=== PATIENT | female | born 1975 | race Caucasian/White ===

== ENCOUNTER 2016-07-01 15:56 | Emergency (ER) | payer OTHER ==
[2016-07-01 16:12] VITALS: BP 129/91; PULSE 90; O2SAT 97
--- NOTE | 2016-07-01 16:57 | ERPHSYRPT ---
- History of Present Illness Time Seen by Provider: 07/01/16 16:47 Source: patient Exam Limitations: no limitations Patient Subjective Stated Complaint: PT REPORTS BACK PAIN INCREASINGLY WORSE- DENIES INJURY-DENIES LIFTING OR PULLING Triage Nursing Assessment: PT PINK WARM ET [id number] OBVIOUS SIGNS OF INJURY- PT MOVING ALL EXTREMITIES-PT AMBULATORY TO ED Physician History: The patient is a 40-year-old female who complains of back pain for 2 days. She doesn't recall injuring her back recently. She has tried Tylenol and muscle rubs without relief. Her past medical history is significant for hypertension, tachycardia, and COPD. Timing/Duration: day(s) (2) Method of Injury: unknown Quality: aching Back Pain Location: T-spine, paraspinous muscles Severity of Pain-Max: moderate Severity of Pain-Current: moderate Modifying Factors: Improves With: pain medication Associated Symptoms: denies symptoms Previous symptoms: no prior history Allergies/Adverse Reactions: penicillin G Allergy (Intermediate, Verified 07/01/16 16:12) Hives Home Medications: Albuterol Sulfate [Ventolin Hfa] 2 inh PO Q4H PRN PRN 03/05/15 [History] Carvedilol 6.25 mg [Coreg 6.25 MG] 6.25 mg PO BID 03/05/15 [History] Fluticasone/Vilanterol [Breo Ellipta 100-25 Mcg INH] 1 each IH QPM 03/05/15 [ History] Lisinopril/Hydrochlorothiazide [Lisinopril-Hctz 20-12.5 mg Tab] 1 tab PO DAILY 03/05/15 [History] Umeclidinium [place] [Incruse Ellipta] 62.5 mcg IH QAM 03/05/15 [History] Meloxicam 7.5 mg [Mobic 7.5 MG] 7.5 mg PO UD 07/01/16 [History] Montelukast Sodium [Singulair] 10 mg PO DAILY 07/01/16 [History] Hx Tetanus, Diphtheria Vaccination/Date Given: Yes Hx Influenza Vaccination/Date Given: Yes Hx Pneumococcal Vaccination/Date Given: Yes Immunizations Up to Date: Yes - Review of Systems Constitutional: No Fever, No Chills Eyes: No Symptoms Ears, Nose, & Throat: No Symptoms Respiratory: No Cough, No Dyspnea Cardiac: No Chest Pain, No Edema, No Syncope Abdominal/Gastrointestinal: No Abdominal Pain, No Nausea, No Vomiting, No Diarrhea Genitourinary Symptoms: No Dysuria Musculoskeletal: Back Pain Skin: No Rash Neurological: No Dizziness, No Focal Weakness, No Sensory Changes Psychological: No Symptoms Endocrine: No Symptoms Hematologic/Lymphatic: No Symptoms Immunological/Allergic: No Symptoms All Other Systems: Reviewed and Negative - Past Medical History Pertinent Past Medical History: Yes Neurological History: No Pertinent History ENT History: No Pertinent History Cardiac History: Arrhythmia, Hypertension Respiratory History: COPD, Emphysema Endocrine Medical History: No Pertinent History Musculoskeletal History: No Pertinent History GI Medical History: No Pertinent History History: No Pertinent History Psycho-Social History: No Pertinent History Female Reproductive Disorders: No Pertinent History Other Medical History: 3 L O2 AT NIGHT ORDERED D/T COPD; PT. IS A SMOKER, RAPID HEART RATE - Past Surgical History Past Surgical History: No - Social History Smoking Status: Current every day smoker How long have you smoked: YRS Exposure to second hand smoke: Yes Drug Use: marijuana Patient Lives Alone: No - Female History Hx Last Menstrual Period: LAST WEEK - Nursing Vital Signs Temperature: 98.3 F Temperature Source: Oral Pulse Rate: 90 Respiratory Rate: 22 Pain Intensity: 7 - Physical Exam General Appearance: mild distress Eye Exam: PERRL/EOMI, eyes nml inspection Ears, Nose, Throat Exam: normal ENT inspection Neck Exam: normal inspection, non-tender, supple, full range of motion, No meningismus, No midline tenderness Respiratory Exam: normal breath sounds, lungs clear, No respiratory distress Cardiovascular Exam: regular rate/rhythm, normal heart sounds Gastrointestinal Exam: soft, No tenderness, No mass Pelvic Exam: not done Rectal Exam: not done Back Exam: muscle spasm Extremity Exam: normal inspection, normal range of motion, No calf tenderness, No pedal edema Neurologic Exam: alert, oriented x 3, cooperative, 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 There were given a prescription for Flexeril 10 mg every 8 hours as needed. Apply ice to your back for 10-15 minutes at a time as needed. Follow-up as needed. Prescriptions: Cyclobenzaprine HCl [Flexeril] 10 mg PO Q8H PRN PRN #10 tablet PRN Reason: Pain
== END 2016-07-01 17:06 | disposition home or self-care (01) ==
LOC: ED 15:56
DX: M62.830 Muscle spasm of back (principal); I10 Essential (primary) hypertension; Z79.899 Other long term (current) drug therapy
CPT/HCPCS: 99282

== ENCOUNTER 2018-05-14 13:25 | Day surgery (SDC) | payer OTHER ==
[2018-05-14] MEDS ORDERED: Ketamine HCl 50 MG/ML IV ONE (13:26)
[2018-05-14] MEDS ORDERED: Xylocaine 1% Vial 30 ML PF IJ ONE (13:26)
[2018-05-14] MEDS ORDERED: Marcaine 0.5% SDV 10 ML IJ ONE (13:26)
[2018-05-14] MEDS ORDERED: Depo-Medrol 40 MG/ML IM ONE (13:26)
[2018-05-14] MEDS ORDERED: DIPRIVAN 200 MG/20 ML IV ONE (13:26)
[2018-05-14] MEDS ORDERED: Lactated Ringers 1,000 ML IV ONE (14:39)
--- NOTE | 2018-05-14 16:30 | XRAY ---
Indication: Right shoulder injection. Intraoperative fluoroscopy was provided for 5 seconds. Single digital spot image submitted for interpretation demonstrates needle tip projecting superior glenohumeral joint. Small amount of contrast injected for needle tip placement. Correlate with intraoperative findings/report.
--- NOTE | 2018-05-14 16:30 | XRAY ---
Indication: Left shoulder injection. Intraoperative fluoroscopy was provided for 7 seconds. Single digital spot image submitted for interpretation demonstrates needle tip projecting superior glenohumeral joint. Small amount of contrast injected for needle tip placement. Correlate with intraoperative findings/report.
--- NOTE | 2018-05-14 16:33 | XRAY ---
7 seconds fluoroscopy time in surgery for left shoulder injection.
--- NOTE | 2018-05-14 16:33 | XRAY ---
5 seconds fluoroscopy time in surgery for right shoulder injection.
== END 2018-05-14 15:24 | disposition home or self-care (01) ==
LOC: SDC-PAIN 13:25
PROVIDERS: ATTEND Psychiatry & Neurology Pain Medicine
DX: M25.512 Pain in left shoulder (principal); M25.511 Pain in right shoulder; M19.012 Primary osteoarthritis, left shoulder; M19.011 Primary osteoarthritis, right shoulder; J43.9 Emphysema, unspecified; Z79.899 Other long term (current) drug therapy
CPT/HCPCS: 73030; 77002; J1030; J2001; J2704

== ENCOUNTER 2023-07-18 15:32 | Inpatient (IN) | payer MEDICARE ==
[2023-07-18] MEDS ORDERED: DUONEB 0.5-3 MG/3 ml Neb IH ONE (16:10)
[2023-07-18] MEDS: DUONEB 0.5-3 MG/3 ml Neb IH ONE (16:11)
[2023-07-18] MEDS ORDERED: Sterile H2O 10 ml IJ ONE (16:21)
[2023-07-18] MEDS: solu-MEDROL 80 MG, Sterile H2O 10 ml 2 ML IV ONE (16:22)
[2023-07-18] MEDS ORDERED: Sodium Chloride 0.9% 1000 ML 1,000 ML ONE ×2 (16:22→17:07)
[2023-07-18] MEDS ORDERED: solu-MEDROL ONE (16:22)
[2023-07-18] MEDS: Sodium Chloride 0.9% 1000 ML 1,000 ML IV SCH ×2 (16:23→17:09)
[2023-07-18 16:30] LABS: Absolute Neutrophil Ct (ANC) 20.88 x10^3/uL (1.4-6.9); BASOPHIL % 0.2 % (0.0-0.4); Basophil (Absolute #) 0.04 x10^3/uL (0-0.4); Eosinophil % 0.1 % (0.00-5.0); Eosinophil (Absolute #) 0.02 x10^3/uL (0-0.5); Hematocrit 29.3 % (35-47); Hemoglobin 9.2 g/dL (12.0-16.0); IMMATURE GRAN # 0.32 x10^3u/L (0.00-0.03); IMMATURE GRAN % 1.2 % (0.00-0.4); Lymphocyte (Absolute #) 2.51 x10^3/uL (1.0-4.6); Lymphocytes % 9.8 % (24.0-44.0); Mean Cell Volume 77.1 fL (78-100); Mean Corpuscular Hemoglobin 24.2 pg (26-32); Mean Corpuscular Hgb Concent. 31.4 g/dL (32-36); Mean Platelet Volume 8.6 fL (7.5-11.0); Monocyte (Absolute #) 1.92 x10^3/uL (0.0-1.3); Monocytes % 7.5 % (0.0-12.0); Neutrophil % 81.2 % (36.0-66.0); Platelet Count 526 x10^3/uL (150-450); Red Cell Distribution Width 17.4 % (11.5-14.0)
[2023-07-18 16:34] LABS: White Blood Count 25.7 x10^3/uL (4.0-10.5)
[2023-07-18 16:43] LABS: ALBUMIN 2.6 g/dL (3.5-5.0); ANION GAP 8.6 MEQ/L (5-15); BILIRUBIN,TOTAL 0.7 mg/dL (0.2-1.3); Calcium 8.3 mg/dL (8.4-10.2); Creatinine 1 0.46 mg/dL (0.52-1.04); EST GLOMERULAR FILTRATION RATE 119.5 ML/MIN; MAGNESIUM 1.3 mg/dL (1.6-2.3); Total Protein 6.1 g/dL (6.3-8.2)
[2023-07-18 16:48] LABS: Potassium 2.8 mmol/L (3.5-5.1)
--- NOTE | 2023-07-18 16:50 | ERPHSYRPT ---
- History of Present Illness Time Seen by Provider: 07/18/23 15:44 Source: patient, family Exam Limitations: no limitations Patient Subjective Stated Complaint: pt states that doctor reji sent her over for pneumonia Triage Nursing Assessment: pt ambulated into the er; pt is axo; c/o cough; expiratory wheezing present to posterior rt upper lobe; moist hacking cough; pt states SOB; pt was hypoxic on arrival, pt was put on 2L O2 stating at 98%; skin dusky, dry, hot to the touch Physician History: 47 years old female with history of respiratory failure secondary to COPD on 2 L oxygen as needed, hypertension presented in the ER with complains of increasing shortness of breath and cough for the last couple of weeks with progressive worsening for the last 3 days. Patient reports coughing up yellow-green sputum. Getting short of breath with minimal activity. Patient denies generalized aches and pains all over and subjective feeling of fever and chills as well. Patient also has a 15 pound weight loss in the last 3 months unintentionally. Patient is sent in here from primary care office for concern about pneumonia and also lung cancer. Patient has outpatient workup done with a white count of 20 5K and potassium of 2.9. Allergies/Adverse Reactions: penicillin G Allergy (Intermediate, Verified 07/18/23 15:47) Hives Home Medications: Albuterol Sulfate [Albuterol Sulfate Hfa] 2 puff IH Q6HPRN PRN 07/18/23 [History] Carvedilol 12.5 mg [Coreg 12.5 mg] 12.5 mg PO BID 07/18/23 [History] Fluticasone/Umeclidin/Vilanter [Trelegy Ellipta 200-62.5-25] 1 puff IH DAILY 07/18/23 [History] Gabapentin 300 mg PO HS 07/18/23 [History] Losartan Potassium 25 mg PO DAILY 07/18/23 [History] Hx Tetanus, Diphtheria Vaccination/Date Given: No (unsure) Hx Influenza Vaccination/Date Given: Yes Hx Pneumococcal Vaccination/Date Given: Yes Immunizations Up to Date: No Travel Risk - International Travel Have you traveled outside of the country in past 3 weeks: No - Emerging Infectious Disease Are you exhibiting symptoms associated with any current EIDs: Yes Symptoms: Cough: New Onset - Review of Systems Constitutional: Fever, Chills, Fatigue, Weakness Eyes: No Symptoms Ears, Nose, & Throat: No Symptoms Respiratory: Cough, Dyspnea, Dyspnea on Exertion (HOBBS), Wheezing Cardiac: Edema Abdominal/Gastrointestinal: No Symptoms Genitourinary Symptoms: No Symptoms Musculoskeletal: Myalgias Skin: No Symptoms Neurological: No Symptoms Psychological: No Symptoms Endocrine: No Symptoms Hematologic/Lymphatic: No Symptoms Immunological/Allergic: No Symptoms - Past Medical History Pertinent Past Medical History: Yes Neurological History: No Pertinent History ENT History: No Pertinent History Cardiac History: Hypertension Respiratory History: COPD, Emphysema Endocrine Medical History: No Pertinent History Musculoskeletal History: Fibromyalgia GI Medical History: No Pertinent History History: No Pertinent History Psycho-Social History: No Pertinent History Female Reproductive Disorders: No Pertinent History Other Medical History: rapid heart beat, connective tissue disorder. - Past Surgical History Past Surgical History: No - Female History Hx Now: (unkn) - Social History Smoking Status: Former smoker How long have you smoked: YRS Exposure to second hand smoke: Yes Drug Use: marijuana Patient Lives Alone: No - Nursing Vital Signs Nursing Vital Signs: Initial Vital Signs Temperature 99.9 F 07/18/23 15:55 Pulse Rate 89 07/18/23 15:55 Respiratory Rate 14 07/18/23 15:55 Blood Pressure 127/73 07/18/23 15:55 O2 Sat by Pulse Oximetry 87 L 07/18/23 15:55 Pain Scale Pain Intensity 2 - Physical Exam General Appearance: no apparent distress, alert Eye Exam: PERRL/EOMI Ears, Nose, Throat Exam: hearing grossly normal, normal ENT inspection, normal pharynx Neck Exam: normal inspection, non-tender, supple, full range of motion Respiratory Exam: diminished breath sounds, crackles/rales, rhonchi, wheezing Cardiovascular/Chest Exam: normal heart sounds, regular rate/rhythm Abdominal/Gastrointestinal Exam: soft, normal bowel sounds, No tenderness Extremity Exam: non-tender, normal range of motion, swelling (Bilateral 2+ pitting edema in the feet and ankles) Neurologic Exam: alert, oriented x 3, cooperative, 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 treatment specialist II-XII nml as tested Skin Exam: normal color SpO2 Interpretation: hypoxic, O2 applied SpO2: 96 O2 Delivery: Nasal Cannula Ordered Tests: Active Orders 24 hr Category Date Time Status 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 Press Operator STAT Care 07/18/23 16:06 Active EKG-ER Only STAT Care 07/18/23 16:05 Active IV Insertion STAT Care 07/18/23 16:05 Active Telemetry q4h Care 07/18/23 17:05 Active CHEST WITH CONTRAST [CT] Stat Exams 07/18/23 16:05 Completed BLOOD CULTURE Stat Lab 07/18/23 16:23 Received CBC W DIFF Stat Lab 07/18/23 16:10 Completed CMP Stat Lab 07/18/23 16:10 Completed CULTURE,URINE Stat Lab 07/18/23 16:19 Received Lactic Acid Stat Lab 07/18/23 16:05 Completed MAGNESIUM Stat Lab 07/18/23 16:10 Completed NT PRO BNPII Stat Lab 07/18/23 16:17 Completed PROCALCITONIN Stat Lab 07/18/23 16:17 Completed TROPONIN Q4H Lab 07/18/23 16:17 Completed TROPONIN Q4H Lab 07/18/23 20:15 Ordered TROPONIN Q4H Lab 07/19/23 00:15 Ordered UA W/RFX UR CULTURE Stat Lab 07/18/23 16:19 Completed Respiratory Therapy Assessment DAILY RT 07/18/23 16:14 Active Transfer Order Routine Transfer 07/18/23 Ordered Medication Summary Generic Name Dose Route Start Last Admin Trade Name Freq PRN Reason Stop Dose Admin Sodium Chloride 1,000 mls @ 100 mls/hr 07/18/23 16:15 07/18/23 16:23 Sodium Chloride 0.9% 1000 Ml IV 08/17/23 16:14 100 mls/hr .Q10H LJ Administration Potassium Chloride 20 meq in 100 mls @ 50 mls/hr 07/18/23 17:15 07/18/23 17:08 Potassium Chloride 20 Meq In Water 100ml IV 07/18/23 21:14 50 mls/hr Q2H LJ Administration Sodium Chloride 1,000 mls @ 125 mls/hr 07/18/23 17:15 07/18/23 17:09 Sodium Chloride 0.9% 1000 Ml IV 08/17/23 17:14 125 mls/hr .Q8H LJ Administration Azithromycin 500 mg in 250 mls @ 250 mls/hr 07/18/23 17:40 Zithromax 500 Mg/ 250 Ml Nacl Premix IV 07/18/23 18:39 STAT STA Magnesium Sulfate/Dextrose 100 mls @ 100 mls/hr 07/18/23 17:45 07/18/23 18:12 Magnesium 1 Gm / 100 Ml D5w IV 07/18/23 19:44 100 mls/hr Q1H LJ Administration Vancomycin HCl 2 gm in 400 mls @ 133.333 mls/hr 07/18/23 17:59 Vancomycin 2 Gram/400 Ml Bag IV 07/18/23 20:58 STAT ONE Discontinued Medications Generic Name Dose Route Start Last Admin Trade Name Fredebra PRN Reason Stop Dose Admin Albuterol/Ipratropium 3 ml 07/18/23 16:05 07/18/23 16:11 Ipratropium/Albuterol Sulfate 3 Ml Ampul.Neb IH 07/18/23 16:06 3 ml STAT ONE Administration Albuterol/Ipratropium Confirm 07/18/23 16:10 Ipratropium/Albuterol Sulfate 3 Ml Ampul.Neb Administered 07/18/23 16:11 Dose 3 ml IH .STK-MED ONE Methylprednisolone Sodium 0 mg 07/18/23 16:05 07/18/23 16:22 Succinate 80 mg/ Sterile Water IV 07/18/23 16:06 125 mg 2 ml STAT ONE Administration Aztreonam 2 gm/ Sodium 100 mls @ 200 mls/hr 07/18/23 17:41 Chloride IV 07/18/23 18:10 STAT ONE Methylprednisolone Sodium Succinate Confirm 07/18/23 16:22 Methylprednis Sod Succ 125 Mg/2 Ml Vial Administered 07/18/23 16:23 Dose 125 mg .ROUTE .STK-MED ONE Potassium Chloride 40 meq 07/18/23 17:05 07/18/23 17:09 Potassium Chloride Tab 10 Meq Tab PO 07/18/23 17:06 40 meq STAT ONE Administration Potassium Chloride Confirm 07/18/23 17:07 Potassium Chloride Tab 10 Meq Tab Administered 07/18/23 17:08 Dose 40 meq .ROUTE .STK-MED ONE Sterile Water Confirm 07/18/23 16:21 Water For Injection,Sterile 10 Ml Vial Administered 07/18/23 16:22 Dose 10 ml IJ .STK-MED ONE Lab/Rad Data: Laboratory Result Diagrams 07/18/23 16:10 07/18/23 16:10 Laboratory Results 07/18/23 07/18/23 07/18/23 Range/Units 16:19 16:17 16:17 WBC (4.0-10.5) x10^3/uL RBC (4.1-5.4) x10^6/uL Hgb (12.0-16.0) g/dL Hct (35-47) % MCV (78-100) fL MCH (26-32) pg MCHC (32-36) g/dL RDW (11.5-14.0) % Plt Count (150-450) x10^3/uL MPV (7.5-11.0) fL Gran % (36.0-66.0) % Immature Gran % (Auto) (0.00-0.4) % Nucleat RBC Rel Count (0.00-0.1) % Eos # (Auto) (0-0.5) x10^3/uL Immature Gran # (Auto) (0.00-0.03) x10^3u/L Absolute Lymphs (auto) (1.0-4.6) x10^3/uL Absolute Monos (auto) (0.0-1.3) x10^3/uL Absolute Nucleated RBC (0.00-0.01) x10^3u/L Lymphocytes % (24.0-44.0) % Monocytes % (0.0-12.0) % Eosinophils % (0.00-5.0) % Basophils % (0.0-0.4) % Absolute Granulocytes (1.4-6.9) x10^3/uL Basophils # (0-0.4) x10^3/uL Sodium (135-145) mmol/L Potassium (3.5-5.1) mmol/L Chloride (98-107) mmol/L Carbon Dioxide (22-30) mmol/L Anion Gap (5-15) MEQ/L BUN (7-17) mg/dL Creatinine (0.52-1.04) mg/dL Estimated GFR ML/MIN Glucose (74-106) mg/dL Lactic Acid (0.4-2.0) Calcium (8.4-10.2) mg/dL Magnesium (1.6-2.3) mg/dL Total Bilirubin (0.2-1.3) mg/dL AST (14-36) U/L ALT (0-35) U/L Alkaline Phosphatase (38-126) U/L Troponin I (0.000-0.033) ng/mL NT-Pro-B Natriuret Pep 1190 (<300) pg/mL Serum Total Protein (6.3-8.2) g/dL Albumin (3.5-5.0) g/dL Procalcitonin 0.145 H (0.030-0.080) ng/mL Urine Color [place] A (Yellow) Urine Appearance Turbid A (Clear) Urine pH 5.5 (4.6-8.0) Ur Specific [place] 1.020 (1.005-1.030) Urine Protein 30 (Negative) Urine Glucose (UA) Negative (Negative) mg/dL Urine Ketones Negative (Negative) Urine Blood Negative (Negative) Urine Nitrite Positive A (Negative) Urine Bilirubin Moderate A (Negative) Urine Urobilinogen 2.0 A (0.2) mg/dL Ur Leukocyte Esterase Moderate A (Negative) U Hyaline Cast (Auto) None Seen (0-2) /LPF Urine Microscopic RBC 0-2 (0-5) /HPF Urine Microscopic WBC 6-10 A (0-5) /HPF Ur Epithelial Cells Moderate A (None Seen) /HPF Amorphous Crystals Moderate A (None Seen) /HPF Urine Bacteria Moderate A (None Seen) /HPF Urine Culture Reflexed YES (NO) Influenza Type A Ag NEGATIVE (NEGATIVE) Influenza Type B Ag NEGATIVE (NEGATIVE) RSV (PCR) NEGATIVE (NEGATIVE) SARS-CoV-2 (PCR) NEGATIVE (NEGATIVE) Slides for Path Review 07/18/23 07/18/23 07/18/23 Range/Units 16:17 16:10 16:10 WBC 25.7 H* (4.0-10.5) x10^3/uL RBC 3.80 L (4.1-5.4) x10^6/uL Hgb 9.2 L (12.0-16.0) g/dL Hct 29.3 L (35-47) % MCV 77.1 L (78-100) fL MCH 24.2 L (26-32) pg MCHC 31.4 L (32-36) g/dL RDW 17.4 H (11.5-14.0) % Plt Count 526 H (150-450) x10^3/uL MPV 8.6 (7.5-11.0) fL Gran % 81.2 H (36.0-66.0) % Immature Gran % (Auto) 1.2 H (0.00-0.4) % Nucleat RBC Rel Count 0.0 (0.00-0.1) % Eos # (Auto) 0.02 (0-0.5) x10^3/uL Immature Gran # (Auto) 0.32 H (0.00-0.03) x10^3u/L Absolute Lymphs (auto) 2.51 (1.0-4.6) x10^3/uL Absolute Monos (auto) 1.92 H (0.0-1.3) x10^3/uL Absolute Nucleated RBC 0.00 (0.00-0.01) x10^3u/L Lymphocytes % 9.8 L (24.0-44.0) % Monocytes % 7.5 (0.0-12.0) % Eosinophils % 0.1 (0.00-5.0) % Basophils % 0.2 (0.0-0.4) % Absolute Granulocytes 20.88 H (1.4-6.9) x10^3/uL Basophils # 0.04 (0-0.4) x10^3/uL Sodium 131 L (135-145) mmol/L Potassium 2.8 L* (3.5-5.1) mmol/L Chloride 94 L (98-107) mmol/L Carbon Dioxide 30 (22-30) mmol/L Anion Gap 8.6 (5-15) MEQ/L BUN 7 (7-17) mg/dL Creatinine 0.46 L (0.52-1.04) mg/dL Estimated GFR 119.5 ML/MIN Glucose 112 H (74-106) mg/dL Lactic Acid (0.4-2.0) Calcium 8.3 L (8.4-10.2) mg/dL Magnesium 1.3 L (1.6-2.3) mg/dL Total Bilirubin 0.70 (0.2-1.3) mg/dL AST 54 H (14-36) U/L ALT 21 (0-35) U/L Alkaline Phosphatase 112 (38-126) U/L Troponin I < 0.012 (0.000-0.033) ng/mL NT-Pro-B Natriuret Pep (<300) pg/mL Serum Total Protein 6.1 L (6.3-8.2) g/dL Albumin 2.6 L (3.5-5.0) g/dL Procalcitonin (0.030-0.080) ng/mL Urine Color (Yellow) Urine Appearance (Clear) Urine pH (4.6-8.0) Ur Specific [place] (1.005-1.030) Urine Protein (Negative) Urine Glucose (UA) (Negative) mg/dL Urine Ketones (Negative) Urine Blood (Negative) Urine Nitrite (Negative) Urine Bilirubin (Negative) Urine Urobilinogen (0.2) mg/dL Ur Leukocyte Esterase (Negative) U Hyaline Cast (Auto) (0-2) /LPF Urine Microscopic RBC (0-5) /HPF Urine Microscopic WBC (0-5) /HPF Ur Epithelial Cells (None Seen) /HPF Amorphous Crystals (None Seen) /HPF Urine Bacteria (None Seen) /HPF Urine Culture Reflexed (NO) Influenza Type A Ag (NEGATIVE) Influenza Type B Ag (NEGATIVE) RSV (PCR) (NEGATIVE) SARS-CoV-2 (PCR) (NEGATIVE) Slides for Path Review YES 07/18/23 Range/Units 16:05 WBC (4.0-10.5) x10^3/uL RBC (4.1-5.4) x10^6/uL Hgb (12.0-16.0) g/dL Hct (35-47) % MCV (78-100) fL MCH (26-32) pg MCHC (32-36) g/dL RDW (11.5-14.0) % Plt Count (150-450) x10^3/uL MPV (7.5-11.0) fL Gran % (36.0-66.0) % Immature Gran % (Auto) (0.00-0.4) % Nucleat RBC Rel Count (0.00-0.1) % Eos # (Auto) (0-0.5) x10^3/uL Immature Gran # (Auto) (0.00-0.03) x10^3u/L Absolute Lymphs (auto) (1.0-4.6) x10^3/uL Absolute Monos (auto) (0.0-1.3) x10^3/uL Absolute Nucleated RBC (0.00-0.01) x10^3u/L Lymphocytes % (24.0-44.0) % Monocytes % (0.0-12.0) % Eosinophils % (0.00-5.0) % Basophils % (0.0-0.4) % Absolute Granulocytes (1.4-6.9) x10^3/uL Basophils # (0-0.4) x10^3/uL Sodium (135-145) mmol/L Potassium (3.5-5.1) mmol/L Chloride (98-107) mmol/L Carbon Dioxide (22-30) mmol/L Anion Gap (5-15) MEQ/L BUN (7-17) mg/dL Creatinine (0.52-1.04) mg/dL Estimated GFR ML/MIN Glucose (74-106) mg/dL Lactic Acid 1.3 (0.4-2.0) Calcium (8.4-10.2) mg/dL Magnesium (1.6-2.3) mg/dL Total Bilirubin (0.2-1.3) mg/dL AST (14-36) U/L ALT (0-35) U/L Alkaline Phosphatase (38-126) U/L Troponin I (0.000-0.033) ng/mL NT-Pro-B Natriuret Pep (<300) pg/mL Serum Total Protein (6.3-8.2) g/dL Albumin (3.5-5.0) g/dL Procalcitonin (0.030-0.080) ng/mL Urine Color (Yellow) Urine Appearance (Clear) Urine pH (4.6-8.0) Ur Specific [place] (1.005-1.030) Urine Protein (Negative) Urine Glucose (UA) (Negative) mg/dL Urine Ketones (Negative) Urine Blood (Negative) Urine Nitrite (Negative) Urine Bilirubin (Negative) Urine Urobilinogen (0.2) mg/dL Ur Leukocyte Esterase (Negative) U Hyaline Cast (Auto) (0-2) /LPF Urine Microscopic RBC (0-5) /HPF Urine Microscopic WBC (0-5) /HPF Ur Epithelial Cells (None Seen) /HPF Amorphous Crystals (None Seen) /HPF Urine Bacteria (None Seen) /HPF Urine Culture Reflexed (NO) Influenza Type A Ag (NEGATIVE) Influenza Type B Ag (NEGATIVE) RSV (PCR) (NEGATIVE) SARS-CoV-2 (PCR) (NEGATIVE) Slides for Path Review - Progress Progress: re-examined Air Movement: fair Progress Note: 07/18/23 18:10 47 years old is evaluated in the ER for worsening cough and shortness of breath with unintentional recent weight loss. Patient is given DuoNeb and steroids, started on gentle hydration. Patient workup showed EKG sinus rhythm with no acute ST elevations and negative initial troponins. She has a white count of 25, chemistries potassium of 2.8 and magnesium of 1.3, she is getting replacement. She does have UTI as well with positive nitrites. I have obtained CT chest PE protocol which is negative for pulmonary embolism but diffuse emphysema and opacities consistent with pneumonia and also multiple lung masses suggesting possible malignancy. She is started on broad-spectrum antibiotics, aztreonam/vancomycin and Zithromax. I have shared the results of workup with patient including CT finding which according to patient she is aware of the fact that she has lung masses and does not want anyone to touch them. I have told patient that this could be a malignancy and she is states "I want to with them but would not let anyone touch it". I have suggested admission which she agreed. I discussed with Dr. Liu, reviewed history, workup and patient perspective about lung masses and she agreed to keep patient in here. Patient history, workup, review and interpretation of workup, management are one of the highest level of complexity. Blood Culture(s) Obtained: Yes Antibiotics given: Yes Discussed with : Other (Noe hospitalist [id number]) Will see patient in: hospital (full admit) Counseled pt/family regarding: lab results, diagnosis, rad results Medical Desision Making - Independent Historian Additional History obtained from: Spouse - Discussion of managment Care discussed with:: hospitalist (Dr. Liu) Reviewed:: Test results, Need for additional workup Agreed on:: Treatment plan, decision to admit Will see patient: in hospital - Diagnostic Testing Diagnostic test were ordered, analyzed, and reviewed by me: Yes Radiological Interpretation: Reviewed by me - Risk of complications The pt has a high risk of morbidity or mortality based on: Decision regarding hospitilization or escalation of hosp level of care - Departure Departure Disposition: In-patient Admission Clinical Impression: Respiratory failure, Pneumonia, Lung mass, Hypokalemia, Hypomagnesemia, Sepsis, UTI (urinary tract infection) Condition: Fair Critical Care Time: Yes Critical Care Time(excluding separately billable procedures): Critical 30-74 mins Referrals: ADRIANO ZULETA MD [Primary Care Provider] - Follow up/PCP as directed
[2023-07-18] MEDS ORDERED: Klor Con ONE (17:07)
[2023-07-18 17:08] LABS: INFLUENZA A NEGATIVE (NEGATIVE); INFLUENZA B NEGATIVE (NEGATIVE); RESPIRATORY SYNCTIAL VIRUS NEGATIVE (NEGATIVE); SARS-CoV-2 Xpert Express NEGATIVE (NEGATIVE)
[2023-07-18] MEDS ORDERED: POTASSIUM CHLORIDE 20 mEq IN WATER 100ML 100 ML IV ONE ×2 (17:08→19:15)
[2023-07-18] MEDS: POTASSIUM CHLORIDE 20 mEq IN WATER 100ML 20 MEQ/100 ML BAG IV SCH (17:08)
[2023-07-18] MEDS: Klor Con PO ONE (17:09)
[2023-07-18 17:12] LABS: Appearance Turbid (Clear); Bacteria Moderate /HPF (None Seen); Bilirubin Moderate (Negative); Blood Negative (Negative); Epithelial Cells Moderate /HPF (None Seen); Glucose, Urine Negative (Negative); Hyaline Casts None Seen /LPF (0-2); Ketones Negative (Negative); Leukocyte Esterase Moderate (Negative); Nitrite Positive (Negative); Ph 5.5 (4.6-8.0); Protein,Urine Dip 30 (Negative); RBC 0-2 /HPF (0-5)
[2023-07-18 17:13] LABS: ADD URINE CULTURE? YES (NO); Amourphous Crystal Moderate /HPF (None Seen)
[2023-07-18 17:19] LABS: Slide Review 1 YES
--- NOTE | 2023-07-18 17:22 | XRAY ---
Indication: Short of breath. Mass. Pulmonary embolus. Multiple contiguous axial images obtained through the chest using 80 cc Isovue 370 contrast and PE protocol. Comparison: CT chest without contrast July 07, 2019 Good opacification of the pulmonary arteries to include the lobar and segmental branches. No pulmonary embolus. Heart not enlarged. Aorta is normal in course and caliber. New 1.1 x 1.4 cm right hilar node. Lungs again demonstrates advanced diffuse centrilobular pulmonary emphysema. Posterior right upper lobe demonstrates new 4.8 x 6.1 x 6.6 cm subpleural noncalcified mass with irregular/spiculated margins worrisome for malignancy. Adjacent pleural thickening but no chest wall invasion/osseous destructive process. Right lower lobe demonstrates new 3.2 x 4.7 x 3.2 cm spiculated noncalcified mass also probably malignance. Posterior inferior right upper lobe demonstrates new hazy interstitial alveolar opacities probably inflammatory/infectious with tiny right effusion. Previous 4 mm peripheral left lower lobe noncalcified nodule is grossly stable and favored to be benign given stability over the years. Bony thorax intact. No suspicious bony lesions. Limited upper abdomen demonstrates stable 1 cm posterior right hepatic hypodense lesion dating back to June 05, 2018 CT chest exam and probable cyst. Impression: 1. Negative pulmonary embolus. 2. New large right upper and right lower lobe noncalcified lung masses as detailed worrisome for malignancy. 3. New right hilar prominent lymph node probably metastatic. 4. New right upper lobe interstitial alveolar opacities with tiny effusion probably pneumonia. 5. Again chronic findings including pulmonary emphysema, benign left lower lobe noncalcified micronodule, and probable hepatic cyst.
[2023-07-18] MEDS ORDERED: Magnesium 1 Gm / 100 Ml D5W*** 100 ML IV ONE ×2 (17:47→18:11)
[2023-07-18] MEDS: Magnesium 1 Gm / 100 Ml D5W*** 100 ML IV SCH (17:48)
[2023-07-18 18:01] LABS: PROCALCITONIN 0.145 ng/mL (0.030-0.080)
[2023-07-18] MEDS ORDERED: Zithromax 500 MG/ 250 ML NaCl Premix 500 MG/250 ML IVPB IV ONE (18:28)
[2023-07-18] MEDS: Zithromax 500 MG/ 250 ML NaCl Premix 500 MG/250 ML IVPB IV STA (18:29)
[2023-07-18] MEDS: AZACTAM 1 GM*** 2 GM in Sodium Chloride 0.9% 100 ML IV ONE (19:34)
[2023-07-18] MEDS ORDERED: VANCOMYCIN 2 GRAM/400 ML BAG 2 GM/400 ML PIGGYBACK IV ONE (19:59)
[2023-07-18] MEDS: VANCOMYCIN 2 GRAM/400 ML BAG 2 GM/400 ML PIGGYBACK IV ONE (20:00)
--- NOTE | 2023-07-18 22:27 | PCM.HP ---
History of Present Illness - Chief Complaint Chief Complaint: Pnuemonia/UTI Date: 07/18/23 History of Present Illness: Ms. DOUGLAS is a 47 year old female with a past medical history significant for hypertension, mixed connective tissue disease, and COPD who presents to the hospital with complaints of increasing weakness, lower abdominal pain and cough associated with yellow green sputum. She was found to have an elevated WBC count of 25k and recently saw her wood preserving plant laborer who held her Plaquenil. Some low grade temps but no fever/chills. No chest pain but persistent shortness of breath. No nausea or vomiting but significant diarrhea. Initial labs were also notable for a potassium of 2.6 and magnesium of 1.3. She was started on IVFs, received doses of Mg/K and given antibiotics in the ER. She is resting in bed, awake/alert. She was slightly hypotensive but appears better after fluid bolus. CT chest negative for PE, but does show RUL/RLL masses with likely metastatic disease. - Review of Systems Constitutional: Fatigue, Lethargy, No Chills Eyes: No Vision Changes Ears, Nose, & Throat: No Sinus Drainage Respiratory: Cough, Short Of Breath, No Orthopnea Cardiac: No Chest Pain, No Edema, No Palpitations Abdominal/Gastrointestinal: Diarrhea, No Abdominal Pain, No Nausea, No Vomiting Genitourinary Symptoms: No Dysuria, No Frequency, No Hematuria Musculoskeletal: No Arthralgias, No Back Pain Skin: No Cellulitis, No Rash Neurological: No Focal Weakness Psychological: No Suicidal Ideations Endocrine: No Polyuria, No Polydipsia Medications & Allergies Home Medications: Home Medication List Albuterol Sulfate [Albuterol Sulfate Hfa] 2 puff IH Q6HPRN PRN 07/18/23 [History Confirmed 07/18/23] Carvedilol 12.5 mg [Coreg 12.5 mg] 12.5 mg PO BID 07/18/23 [History Confirmed 07/18/23] Fluticasone/Umeclidin/Vilanter [Trelegy Ellipta 200-62.5-25] 1 puff IH DAILY 07/18/23 [History Confirmed 07/18/23] Gabapentin 300 mg PO HS 07/18/23 [History Confirmed 07/18/23] Losartan Potassium 25 mg PO DAILY 07/18/23 [History Confirmed 07/18/23] Allergies/Adverse Reactions: Allergies Allergy/AdvReac Type Severity Reaction Status Date / Time penicillin G Allergy Intermediate Hives Verified 07/18/23 15:47 - Past Medical History Past Medical History: Yes Neurological History: No Pertinent History ENT History: No Pertinent History Cardiac History: Hypertension Respiratory History: COPD, Emphysema Endocrine Medical History: No Pertinent History Musculoskelatal History: Fibromyalgia GI Medical History: No Pertinent History History: No Pertinent History Pyscho-Social History: No Pertinent History Reproductive Disorders: No Pertinent History Comment: rapid heart beat, connective tissue disorder. - Female History Are you now?: No - Past Surgical History Past Surgical History: No - Social History Smoking Status: Current every day smoker How long have you smoked: YRS Exposure to second hand smoke: Yes Alcohol: None Drug Use: marijuana - Social Determinants of Health Will the patient participate in the screening: Yes Do you worry about a steady place to live?: No Do you have any problems with any of the following?: No known problems In the past 12 months,have you had to go without utilities?: No Have you or anyone in your house had to go without enough: No Transportation Issues: No Has anyone in your support network made you feel unsafe?: No Does the patient want assistance with any of the above?: No - Physical Exam Vital Signs: Vital Signs - 24 hr Temp Pulse Resp BP BP Pulse Ox 07/18/23 21:03 98.2 F 85 16 112/59 98 07/18/23 19:30 83 23 92/60 95 07/18/23 19:00 87 21 100/67 94 L 07/18/23 18:45 87 20 111/68 94 L 07/18/23 18:30 85 18 101/65 95 07/18/23 18:15 84 26 H 106/67 95 07/18/23 18:14 96 07/18/23 18:00 83 21 105/66 94 L 07/18/23 17:45 83 17 109/62 93 L 07/18/23 17:30 83 16 103/64 07/18/23 17:17 84 13 105/73 94 L 07/18/23 16:30 88 113/60 07/18/23 16:15 87 22 123/65 07/18/23 16:14 89 14 96 07/18/23 15:55 99.9 F 89 14 127/73 87 L General Appearance: no apparent distress Neurologic Exam: alert, oriented x 3 Ears, Nose, Throat Exam: dry mucous membranes Neck Exam: supple Respiratory Exam: No respiratory distress Cardiovascular Exam: regular rate/rhythm Gastrointestinal/Abdomen Exam: soft Extremity Exam: No pedal edema, No swelling Skin Exam: normal color, dry, No rash Results - Labs Lab/Micro Results: Lab Results-Last 24 Hours 07/18/23 07/18/23 07/18/23 Range/Units 16:05 16:10 16:10 WBC 25.7 H* (4.0-10.5) x10^3/uL RBC 3.80 L (4.1-5.4) x10^6/uL Hgb 9.2 L (12.0-16.0) g/dL Hct 29.3 L (35-47) % MCV 77.1 L (78-100) fL MCH 24.2 L (26-32) pg MCHC 31.4 L (32-36) g/dL RDW 17.4 H (11.5-14.0) % Plt Count 526 H (150-450) x10^3/uL MPV 8.6 (7.5-11.0) fL Gran % 81.2 H (36.0-66.0) % Immature Gran % (Auto) 1.2 H (0.00-0.4) % Nucleat RBC Rel Count 0.0 (0.00-0.1) % Eos # (Auto) 0.02 (0-0.5) x10^3/uL Immature Gran # (Auto) 0.32 H (0.00-0.03) x10^3u/L Absolute Lymphs (auto) 2.51 (1.0-4.6) x10^3/uL Absolute Monos (auto) 1.92 H (0.0-1.3) x10^3/uL Absolute Nucleated RBC 0.00 (0.00-0.01) x10^3u/L Lymphocytes % 9.8 L (24.0-44.0) % Monocytes % 7.5 (0.0-12.0) % Eosinophils % 0.1 (0.00-5.0) % Basophils % 0.2 (0.0-0.4) % Absolute Granulocytes 20.88 H (1.4-6.9) x10^3/uL Basophils # 0.04 (0-0.4) x10^3/uL Sodium 131 L (135-145) mmol/L Potassium 2.8 L* (3.5-5.1) mmol/L Chloride 94 L (98-107) mmol/L Carbon Dioxide 30 (22-30) mmol/L Anion Gap 8.6 (5-15) MEQ/L BUN 7 (7-17) mg/dL Creatinine 0.46 L (0.52-1.04) mg/dL Estimated GFR 119.5 ML/MIN Glucose 112 H (74-106) mg/dL Lactic Acid 1.3 (0.4-2.0) Calcium 8.3 L (8.4-10.2) mg/dL Magnesium 1.3 L (1.6-2.3) mg/dL Total Bilirubin 0.70 (0.2-1.3) mg/dL AST 54 H (14-36) U/L ALT 21 (0-35) U/L Alkaline Phosphatase 112 (38-126) U/L Troponin I (0.000-0.033) ng/mL NT-Pro-B Natriuret Pep (<300) pg/mL Serum Total Protein 6.1 L (6.3-8.2) g/dL Albumin 2.6 L (3.5-5.0) g/dL Procalcitonin (0.030-0.080) ng/mL Urine Color (Yellow) Urine Appearance (Clear) Urine pH (4.6-8.0) Ur Specific [place] (1.005-1.030) Urine Protein (Negative) Urine Glucose (UA) (Negative) mg/dL Urine Ketones (Negative) Urine Blood (Negative) Urine Nitrite (Negative) Urine Bilirubin (Negative) Urine Urobilinogen (0.2) mg/dL Ur Leukocyte Esterase (Negative) U Hyaline Cast (Auto) (0-2) /LPF Urine Microscopic RBC (0-5) /HPF Urine Microscopic WBC (0-5) /HPF Ur Epithelial Cells (None Seen) /HPF Amorphous Crystals (None Seen) /HPF Urine Bacteria (None Seen) /HPF Urine Culture Reflexed (NO) Influenza Type A Ag (NEGATIVE) Influenza Type B Ag (NEGATIVE) RSV (PCR) (NEGATIVE) SARS-CoV-2 (PCR) (NEGATIVE) Slides for Path Review YES 07/18/23 07/18/23 07/18/23 Range/Units 16:17 16:17 16:17 WBC (4.0-10.5) x10^3/uL RBC (4.1-5.4) x10^6/uL Hgb (12.0-16.0) g/dL Hct (35-47) % MCV (78-100) fL MCH (26-32) pg MCHC (32-36) g/dL RDW (11.5-14.0) % Plt Count (150-450) x10^3/uL MPV (7.5-11.0) fL Gran % (36.0-66.0) % Immature Gran % (Auto) (0.00-0.4) % Nucleat RBC Rel Count (0.00-0.1) % Eos # (Auto) (0-0.5) x10^3/uL Immature Gran # (Auto) (0.00-0.03) x10^3u/L Absolute Lymphs (auto) (1.0-4.6) x10^3/uL Absolute Monos (auto) (0.0-1.3) x10^3/uL Absolute Nucleated RBC (0.00-0.01) x10^3u/L Lymphocytes % (24.0-44.0) % Monocytes % (0.0-12.0) % Eosinophils % (0.00-5.0) % Basophils % (0.0-0.4) % Absolute Granulocytes (1.4-6.9) x10^3/uL Basophils # (0-0.4) x10^3/uL Sodium (135-145) mmol/L Potassium (3.5-5.1) mmol/L Chloride (98-107) mmol/L Carbon Dioxide (22-30) mmol/L Anion Gap (5-15) MEQ/L BUN (7-17) mg/dL Creatinine (0.52-1.04) mg/dL Estimated GFR ML/MIN Glucose (74-106) mg/dL Lactic Acid (0.4-2.0) Calcium (8.4-10.2) mg/dL Magnesium (1.6-2.3) mg/dL Total Bilirubin (0.2-1.3) mg/dL AST (14-36) U/L ALT (0-35) U/L Alkaline Phosphatase (38-126) U/L Troponin I < 0.012 (0.000-0.033) ng/mL NT-Pro-B Natriuret Pep 1190 (<300) pg/mL Serum Total Protein (6.3-8.2) g/dL Albumin (3.5-5.0) g/dL Procalcitonin 0.145 H (0.030-0.080) ng/mL Urine Color (Yellow) Urine Appearance (Clear) Urine pH (4.6-8.0) Ur Specific [place] (1.005-1.030) Urine Protein (Negative) Urine Glucose (UA) (Negative) mg/dL Urine Ketones (Negative) Urine Blood (Negative) Urine Nitrite (Negative) Urine Bilirubin (Negative) Urine Urobilinogen (0.2) mg/dL Ur Leukocyte Esterase (Negative) U Hyaline Cast (Auto) (0-2) /LPF Urine Microscopic RBC (0-5) /HPF Urine Microscopic WBC (0-5) /HPF Ur Epithelial Cells (None Seen) /HPF Amorphous Crystals (None Seen) /HPF Urine Bacteria (None Seen) /HPF Urine Culture Reflexed (NO) Influenza Type A Ag NEGATIVE (NEGATIVE) Influenza Type B Ag NEGATIVE (NEGATIVE) RSV (PCR) NEGATIVE (NEGATIVE) SARS-CoV-2 (PCR) NEGATIVE (NEGATIVE) Slides for Path Review 07/18/23 07/18/23 Range/Units 16:19 19:05 WBC (4.0-10.5) x10^3/uL RBC (4.1-5.4) x10^6/uL Hgb (12.0-16.0) g/dL Hct (35-47) % MCV (78-100) fL MCH (26-32) pg MCHC (32-36) g/dL RDW (11.5-14.0) % Plt Count (150-450) x10^3/uL MPV (7.5-11.0) fL Gran % (36.0-66.0) % Immature Gran % (Auto) (0.00-0.4) % Nucleat RBC Rel Count (0.00-0.1) % Eos # (Auto) (0-0.5) x10^3/uL Immature Gran # (Auto) (0.00-0.03) x10^3u/L Absolute Lymphs (auto) (1.0-4.6) x10^3/uL Absolute Monos (auto) (0.0-1.3) x10^3/uL Absolute Nucleated RBC (0.00-0.01) x10^3u/L Lymphocytes % (24.0-44.0) % Monocytes % (0.0-12.0) % Eosinophils % (0.00-5.0) % Basophils % (0.0-0.4) % Absolute Granulocytes (1.4-6.9) x10^3/uL Basophils # (0-0.4) x10^3/uL Sodium (135-145) mmol/L Potassium (3.5-5.1) mmol/L Chloride (98-107) mmol/L Carbon Dioxide (22-30) mmol/L Anion Gap (5-15) MEQ/L BUN (7-17) mg/dL Creatinine (0.52-1.04) mg/dL Estimated GFR ML/MIN Glucose (74-106) mg/dL Lactic Acid (0.4-2.0) Calcium (8.4-10.2) mg/dL Magnesium (1.6-2.3) mg/dL Total Bilirubin (0.2-1.3) mg/dL AST (14-36) U/L ALT (0-35) U/L Alkaline Phosphatase (38-126) U/L Troponin I < 0.012 (0.000-0.033) ng/mL NT-Pro-B Natriuret Pep (<300) pg/mL Serum Total Protein (6.3-8.2) g/dL Albumin (3.5-5.0) g/dL Procalcitonin (0.030-0.080) ng/mL Urine Color [place] A (Yellow) Urine Appearance Turbid A (Clear) Urine pH 5.5 (4.6-8.0) Ur Specific [place] 1.020 (1.005-1.030) Urine Protein 30 (Negative) Urine Glucose (UA) Negative (Negative) mg/dL Urine Ketones Negative (Negative) Urine Blood Negative (Negative) Urine Nitrite Positive A (Negative) Urine Bilirubin Moderate A (Negative) Urine Urobilinogen 2.0 A (0.2) mg/dL Ur Leukocyte Esterase Moderate A (Negative) U Hyaline Cast (Auto) None Seen (0-2) /LPF Urine Microscopic RBC 0-2 (0-5) /HPF Urine Microscopic WBC 6-10 A (0-5) /HPF Ur Epithelial Cells Moderate A (None Seen) /HPF Amorphous Crystals Moderate A (None Seen) /HPF Urine Bacteria Moderate A (None Seen) /HPF Urine Culture Reflexed YES (NO) Influenza Type A Ag (NEGATIVE) Influenza Type B Ag (NEGATIVE) RSV (PCR) (NEGATIVE) SARS-CoV-2 (PCR) (NEGATIVE) Slides for Path Review - Radiology Impressions Radiology Exams & Impressions: Radiology Procedures Category Date Time Status CHEST WITH CONTRAST [CT] Stat Exams 07/18/23 16:05 Completed - Other Procedures and Tests Respiratory Therapy 07/18/23 16:14 Respiratory Therapy Assessment DAILY 07/18/23 20:36 Oxygen Nasal Cannula 2 lpm 07/18/23 21:36 Smoking Cessation Education ONCE Assessment/Plan (1) Pneumonia Current Visit: Yes Status: Acute Qualifiers: Laterality: right Assessment & Plan: R lung pneumonia with associated leukocytosis 1. Admit to hospital 2. IV antibiotics 3. Sputum culture 4. Duonebs/supplemental O2 5. Monitor O2 sats Code(s): J18.9 - PNEUMONIA, UNSPECIFIED ORGANISM (2) Mixed connective tissue disease Current Visit: Yes Status: Acute Assessment & Plan: Followed by rheumatology, had been on Plaquenil but held yesterday 1. Continue to hold Plaquenil 2. Defer steroids for now Code(s): M35.1 - OTHER OVERLAP SYNDROMES (3) Hypokalemia Current Visit: Yes Status: Acute Assessment & Plan: Likely from GI losses related to persistent diarrhea 1. IVFs with KCl 2. Encourage high K diet 3. Monitor electrolytes closely Code(s): E87.6 - HYPOKALEMIA (4) Hypomagnesemia Current Visit: Yes Status: Acute Assessment & Plan: Likely from GI losses and contributing to hypokalemia 1. Replete Mg 2. Monitor Mg level 3. Treat underlying diarrhea Code(s): E83.42 - HYPOMAGNESEMIA (5) Lung mass Current Visit: Yes Status: Acute Assessment & Plan: Likely malignancy 1. Will need oncology work up as outpatient 2. Defer PET scan for now Code(s): R91.8 - OTHER NONSPECIFIC ABNORMAL FINDING OF LUNG FIELD (6) UTI (urinary tract infection) Current Visit: Yes Status: Acute Assessment & Plan: U/A c/w UTI with positive nitrites/leukocytes and associated lower abdominal pain 1. IVFs 2. Antibiotics 3. Follow up urine culture Code(s): N39.0 - URINARY TRACT INFECTION, SITE NOT SPECIFIED (7) Hypertension Current Visit: No Status: Acute Assessment & Plan: Controlled, somewhat hypotensive related to infection 1. Hold bp meds 2. Low Na diet 3. Monitor blood pressure readings Code(s): I10 - ESSENTIAL (PRIMARY) HYPERTENSION Telemedicine Encounter - Telemedicine Encounter Telemedicine Encounter: The entirety of this encounter was performed via Telemedicine"
[2023-07-18] MEDS ORDERED: NEURONTIN ONE (23:20)
[2023-07-18] MEDS: COREG 12.5 MG PO SCH (23:21)
[2023-07-18] MEDS: NEURONTIN PO SCH (23:21)
[2023-07-18] MEDS: SODIUM CHLORIDE 0.9% W/ 40 mEq KCL 1000ML 1,000 ML IV SCH (23:23)
[2023-07-19] MEDS ORDERED: DUONEB 0.5-3 MG/3 ml Neb IH SCH (01:00)
[2023-07-19 04:42] LABS: Absolute Neutrophil Ct (ANC) 26.02 x10^3/uL (1.4-6.9); BASOPHIL % 0.1 % (0.0-0.4); Basophil (Absolute #) 0.04 x10^3/uL (0-0.4); Eosinophil (Absolute #) 0 x10^3/uL (0-0.5); Hematocrit 28.3 % (35-47); Hemoglobin 8.7 g/dL (12.0-16.0); IMMATURE GRAN # 0.46 x10^3u/L (0.00-0.03); IMMATURE GRAN % 1.6 % (0.00-0.4); Lymphocytes % 3.5 % (24.0-44.0); Mean Cell Volume 78.2 fL (78-100); Mean Corpuscular Hgb Concent. 30.7 g/dL (32-36); Mean Platelet Volume 8.5 fL (7.5-11.0); Monocyte (Absolute #) 0.78 x10^3/uL (0.0-1.3); Monocytes % 2.8 % (0.0-12.0); Platelet Count 527 x10^3/uL (150-450); Red Blood Count 3.62 x10^6/uL (4.1-5.4); Red Cell Distribution Width 17.8 % (11.5-14.0)
[2023-07-19 04:48] LABS: White Blood Count 28.3 x10^3/uL (4.0-10.5)
[2023-07-19 05:03] LABS: ALBUMIN 2.3 g/dL (3.5-5.0); ANION GAP 8.9 MEQ/L (5-15); BILIRUBIN,TOTAL 0.4 mg/dL (0.2-1.3); Calcium 8.2 mg/dL (8.4-10.2); Creatinine 1 0.35 mg/dL (0.52-1.04); EST GLOMERULAR FILTRATION RATE 127.6 ML/MIN; Potassium 3.4 mmol/L (3.5-5.1); Total Protein 5.7 g/dL (6.3-8.2)
[2023-07-19 07:18] LABS: Slide Review 1 YES
[2023-07-19] MEDS: Klor Con PO SCH (08:46)
[2023-07-19] MEDS: ENOXAPARIN SODIUM SQ SCH (08:49)
[2023-07-19] MEDS: Cozaar 50 MG PO SCH (08:49)
[2023-07-19] MEDS: LEVOFLOXACIN 750MG/150ML D5W 750 MG/150 ML BAG IV SCH (08:55)
[2023-07-19] MEDS ORDERED: NON-FORMULARY ITEM (Losartan Potassium [Losartan Potassium] 25 MG Tablet) PO SCH (10:00)
[2023-07-19] MEDS ORDERED: Levofloxacin 500MG/100ML D5W 500 MG/100 ML BAG IV SCH (10:00)
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
[2023-07-19] MEDS: Sodium Chloride 0.9% 1000 ML 1,000 ML IV SCH (12:18)
--- NOTE | 2023-07-19 15:03 | XRAY ---
Indication: Bilateral leg edema. Two-dimensional sonogram and color Doppler imaging major venous vessels left and right leg performed. Comparison: None No thrombus seen in the examined deep venous vessels left and right leg including greater saphenous vein. Veins demonstrate normal compressibility. Venous waveforms are normal with and without augmentation. Impression: Left and right legs negative for DVT.
[2023-07-19] MEDS: DUONEB 0.5-3 MG/3 ml Neb IH PRN (20:30)
[2023-07-19] MEDS: Zithromax 500 MG/ 250 ML NaCl Premix 500 MG/250 ML IVPB IV SCH (21:26)
[2023-07-20 07:00] LABS: Hematocrit 29.1 % (35-47); Hemoglobin 8.9 g/dL (12.0-16.0); Mean Cell Volume 79.9 fL (78-100); Mean Corpuscular Hemoglobin 24.5 pg (26-32); Mean Corpuscular Hgb Concent. 30.6 g/dL (32-36); Mean Platelet Volume 8.2 fL (7.5-11.0); Platelet Count 572 x10^3/uL (150-450); Red Blood Count 3.64 x10^6/uL (4.1-5.4); Red Cell Distribution Width 18.1 % (11.5-14.0)
[2023-07-20 07:02] LABS: ALBUMIN 2.5 g/dL (3.5-5.0); ANION GAP 9.8 MEQ/L (5-15); BILIRUBIN,TOTAL 0.3 mg/dL (0.2-1.3); Calcium 8.7 mg/dL (8.4-10.2); Creatinine 1 0.36 mg/dL (0.52-1.04); EST GLOMERULAR FILTRATION RATE 126.7 ML/MIN; Potassium 4.4 mmol/L (3.5-5.1); Total Protein 5.8 g/dL (6.3-8.2)
[2023-07-20 07:11] LABS: White Blood Count 29.4 x10^3/uL (4.0-10.5)
[2023-07-20 08:36] LABS: BAND 4 % (0.0-2.0); Lymphocytes 8 % (24-44); Monocyte 2 % (0.0-12.0); Neutrophils 86 % (36.0-66.0); Total Cells Counted 100
[2023-07-20 08:39] LABS: ANISOCYTOSIS 1+; Platelet Estimate INCREASED (NORMAL); Poikilocytosis 1+
--- NOTE | 2023-07-20 09:01 | PCM.NOTE ---
Date and Time: 07/20/23 0845 Subjective Assessment: Subjective Assessment: Ms. DOUGLAS is a 47 year old female with a past medical history significant for hypertension, mixed connective tissue disease, and COPD who presents to the hospital with complaints of increasing weakness, lower abdominal pain and cough associated with yellow green sputum. She was found to have an elevated WBC count of 25k and recently saw her motel maid who held her Plaquenil. Some low grade temps but no fever/chills. No chest pain but persistent shortness of breath. No nausea or vomiting but significant diarrhea. Initial labs were also notable for a potassium of 2.6 and magnesium of 1.3. She was started on IVFs, received doses of Mg/K and given antibiotics in the ER. She is resting in bed, awake/alert. She was slightly hypotensive but appears better after fluid bolus. CT chest negative for PE, but does show RUL/RLL masses with likely metastatic disease. 07/19/23: Met with patient bedside. Endorses that she is feeling much better today. Reports that she has recently lost 15 lbs in three months and has frequent night sweats. Discussed CT chest finding showing new RUL/RLL masses which are likely malignant. Patient states she was aware of a nodule that has been under surveillance by Dr. Correia her billboard poster helper, but did not know about the other masses. She is very reluctant to get any further testing done, regardless of education she feels that the biopsy will make any malignancy present worse. We discussed a referral to oncology for evaluation. She would like to speak with her prior to making any decisions. Denies fever, cp, abdominal pain, BERNAL, dizziness, N/V/D. Patient does have pedal edema, will obtain US of BLE as she is at risk for DVT with ?malignancy. 07/20/23: No overnight events noted. Discussed recent imaging noting possible malignancy again this morning. Patient is agreeable to see oncology as OP for evaluation. At this time she does not want any further imaging, she would like to wait to discuss with oncology. US negative for DVT of BLE. Patient states dyspnea and cough have improved. Denies fever,cough, cp, abdominal pain, BERNAL, dizziness, N/V/D. - Review of Systems Constitutional: No Symptoms Eyes: No Symptoms Ears, Nose, & Throat: No Symptoms Respiratory: Cough, Short Of Breath Cardiac: No Symptoms Abdominal/Gastrointestinal: No Symptoms Genitourinary Symptoms: No Symptoms Musculoskeletal: No Symptoms Skin: No Symptoms Neurological: No Symptoms Psychological: No Symptoms Endocrine: No Symptoms Hematologic/Lymphatic: No Symptoms Immunological/Allergic: No Symptoms Objective Exam General Appearance: no apparent distress, cachetic Neurologic Exam: alert, oriented x 3, cooperative Skin Exam: pale Eye Exam: PERRL Neck Exam: normal inspection Respiratory Exam: diminished breath sounds Cardiovascular Exam: regular rate/rhythm, normal heart sounds Gastrointestinal/Abdomen Exam: soft, normal bowel sounds Extremity Exam: pedal edema (BLE) Back Exam: normal inspection Pelvic Exam: deferred Rectal Exam: deferred Objective Data Vital Signs: Vital Signs - 24 hr Temp Pulse Resp BP Pulse Ox 07/20/23 08:00 97.7 F 90 16 115/65 94 L 07/20/23 04:00 97.4 F 91 H 20 118/68 92 L 07/19/23 23:44 97.5 F 83 18 96/61 96 07/19/23 20:30 93 H 18 94 L 07/19/23 19:26 97.1 F 91 H 20 101/57 96 07/19/23 18:32 90 18 93 L 07/19/23 16:00 96.9 F 86 22 112/66 90 L 07/19/23 11:25 96.4 F 78 18 111/67 99 Pain Assessment - Last Documented Pain Intensity 0 Intake and Output: Intake & Output 07/17/23 07/18/23 07/19/23 07/20/23 11:59 11:59 11:59 11:59 Intake Total 680 3560 Balance 680 3560 Weight 50.3 kg Lab Results: Lab Results-Last 24 Hours 07/20/23 07/20/23 Range/Units 06:50 06:50 WBC 29.4 H* (4.0-10.5) x10^3/uL RBC 3.64 L (4.1-5.4) x10^6/uL Hgb 8.9 L (12.0-16.0) g/dL Hct 29.1 L (35-47) % MCV 79.9 (78-100) fL MCH 24.5 L (26-32) pg MCHC 30.6 L (32-36) g/dL RDW 18.1 H (11.5-14.0) % Plt Count 572 H (150-450) x10^3/uL MPV 8.2 (7.5-11.0) fL Segmented Neutrophils 86 H (36.0-66.0) % Band Neutrophils 4 H (0.0-2.0) % Lymphocytes (Manual) 8 L (24-44) % Monocytes (Manual) 2 (0.0-12.0) % Platelet Estimate INCREASED (NORMAL) RBC Morphology ABNORMAL Poikilocytosis 1+ Anisocytosis 1+ Sodium 139 (135-145) mmol/L Potassium 4.4 D (3.5-5.1) mmol/L Chloride 110 H (98-107) mmol/L Carbon Dioxide 25 (22-30) mmol/L Anion Gap 9.8 (5-15) MEQ/L BUN 9 (7-17) mg/dL Creatinine 0.36 L (0.52-1.04) mg/dL Estimated GFR 126.7 ML/MIN Glucose 118 H (74-106) mg/dL Calcium 8.7 (8.4-10.2) mg/dL Total Bilirubin 0.30 (0.2-1.3) mg/dL AST 57 H (14-36) U/L ALT 26 (0-35) U/L Alkaline Phosphatase 96 (38-126) U/L Serum Total Protein 5.8 L (6.3-8.2) g/dL Albumin 2.5 L (3.5-5.0) g/dL Radiology Exams: Radiology Procedures Category Date Time Status CHEST WITH CONTRAST [CT] Stat Exams 07/18/23 16:05 Completed VENOUS BILATERAL EXTREMITY [US] Stat Exams 07/19/23 14:16 Completed Multi-Disciplinary Progress Notes: Multi-Disciplinary Progress Notes 07/19/23 12:23 Case Management Note by Elham La PATIENT S/[facility] ABOUT PT/OT. PATIENT REPORTED SHE HAD BEEN GETTING OT AT [facility]. S/W [facility]- SHE HAS NOT HAD THERAPY SINCE 12/24. PATIENT WOULD TO GO BACK TO [facility] FOR PT/OT. OTPT ORDERS FAXED TO THEM AT THIS TIME. THEY WILL CONTACT PATIENT TO SET UP AN APPOINTMENT Initialized on 07/19/23 12:23 - END OF NOTE 07/19/23 10:53 Case Management Note by Elham La PATIENT REPORTS SHE HAS A CONCENTRATOR AT HOME FRO OXYGEN AT HS AT 3L. SHE REPORTS SHE WAS SET UP WITH [employer] BUT SINCE THEY CLOSED SHE NEVER HEARD FROM ANY OTHER COMPANY TO KNOW HOW TOOK OVER HER SERVICE. SHE REPORTS PRIOR TO HER ADMISSION HER CONCENTRATOR WAS MALFUNCTIONING AND ALARMING AT HOME . S/W [facility]- THEY REPORT THEY DO HAVE AN ACCOUNT FOR HER BUT THEY HAVE NOT BILLED FOR ANY EQUIPMENT. PATIENT INITIAL O2 SET UP WAS IN 2017. THEY REPORT PATENT'S CONCENTRATOR CAN NOT BE SERVICED D/T NO ACTIVE ORDER. SHE WILL NEED TO BE A NEW SET UP. BECAUSE HER INITAL SET UP WAS IN 2017 PATIENT CAN GO WITH ANY COMPANY SHE PREFERS. NOTIFIED PATIENT. SHE WOULD LIKE TO USE [facility]. PROVIDER DME PREFERENCE FORM SIGNED. [employer] ORDER FORM PLACED ON CHART FOR THE WEEKEND. NOTIFIED RANDY FRIAS- NEW ORDER FOR OVERNIGHT PULSE ENTERED FOR THIS EVENING AND RESPIRATORY NOTIFIED Initialized on 07/19/23 10:53 - END OF NOTE Assessment/Plan (1) Pneumonia Current Visit: Yes Status: Acute Qualifiers: Laterality: right Assessment & Plan: (1) Pneumonia Current Visit: Yes Status: Acute Qualifiers: Laterality: right Assessment & Plan: -Supplemental oxygen with spo2 goal >92%/DuoNebs -WBC is trending up although malignancy may be contributing -Afebrile -Continue levaquin/azithromycin -Baseline oxygen is 3L at night 07/20/23: -WBC continues to trend up - may be secondary to malignancy -Bcult NGTD -sputum cult/MRSA -nares pending -LA wnl -Continue levaquin - dc azithromycin Code(s): J18.9 - PNEUMONIA, UNSPECIFIED ORGANISM (2) Hypokalemia Current Visit: Yes Status: Acute Assessment & Plan: Likely from GI losses and contributing to hypokalemia -Labs reviewed at 3.4 this morning,will replenish -tele -continue to monitor renal /lytes 07/19: -resolved Code(s): E87.6 - HYPOKALEMIA (3) Hypomagnesemia Current Visit: Yes Status: Acute Assessment & Plan: -Mag level reviewed and WNL, continue to monitor daily Code(s): E83.42 - HYPOMAGNESEMIA (4) Lung mass Current Visit: Yes Status: Acute Assessment & Plan: -CT scan reviewed showing New large right upper and right lower lobe nonc alcified lung masses as detailed worrisome for malignancy. 3. New right hilar prominent lymph node probably metastatic. 4. New right upper lobe interstitial alveolar opacities with tiny effusion probably pneumonia. -Long discussion had with patient regarding results. She is very reluctant to have any further testing such a scans, biopsy, etc. She may consider a referral to oncology for evaluation, she will discuss with her and inform us of her decision. 07/20/23: -will refer to oncology on discharge for evaluation, patient would like to discuss with oncology before any further testing including scans are performed Code(s): R91.8 - OTHER NONSPECIFIC ABNORMAL FINDING OF LUNG FIELD (5) Mixed connective tissue disease Current Visit: Yes Status: Acute Assessment & Plan: -Follow OP with rheumatology, was on plaquenil which is being held for now due to adverse reaction. Code(s): M35.1 - OTHER OVERLAP SYNDROMES (6) Respiratory failure Current Visit: Yes Status: Acute Assessment & Plan: -H/O emphysema, sees Bren, baseline 3L oxygen at night - RT to evaluate oxygen needs, may need continuous oxygen -see pneumonia Code(s): J96.90 - RESPIRATORY FAILURE, UNSP, UNSP W HYPOXIA OR HYPERCAPNIA (7) UTI (urinary tract infection) Current Visit: Yes Status: Acute Assessment & Plan: -UA suspicious for UTI, on levaquin, will follow culture, is asymptomatic 07/20/23: -Culture negative Code(s): N39.0 - URINARY TRACT INFECTION, SITE NOT SPECIFIED (8) Hypertension Current Visit: No Status: Acute Assessment & Plan: -Hypotensive during hospital course, will hold BP meds for now and continue to monitor Code(s): I10 - ESSENTIAL (PRIMARY) HYPERTENSION Code(s): J18.9 - PNEUMONIA, UNSPECIFIED ORGANISM (2) Hypokalemia Current Visit: Yes Status: Acute Code(s): E87.6 - HYPOKALEMIA (3) Hypomagnesemia Current Visit: Yes Status: Acute Code(s): E83.42 - HYPOMAGNESEMIA (4) Lung mass Current Visit: Yes Status: Acute Code(s): R91.8 - OTHER NONSPECIFIC ABNORMAL FINDING OF LUNG FIELD (5) Mixed connective tissue disease Current Visit: Yes Status: Acute Code(s): M35.1 - OTHER OVERLAP SYNDROMES (6) Respiratory failure Current Visit: Yes Status: Acute Code(s): J96.90 - RESPIRATORY FAILURE, UNSP, UNSP W HYPOXIA OR HYPERCAPNIA (7) UTI (urinary tract infection) Current Visit: Yes Status: Acute Code(s): N39.0 - URINARY TRACT INFECTION, SITE NOT SPECIFIED (8) Hypertension Current Visit: No Status: Acute Code(s): I10 - ESSENTIAL (PRIMARY) HYPERTENSION
[2023-07-21 05:41] LABS: Absolute Neutrophil Ct (ANC) 16.35 x10^3/uL (1.4-6.9); BASOPHIL % 0.1 % (0.0-0.4); Basophil (Absolute #) 0.03 x10^3/uL (0-0.4); Eosinophil (Absolute #) 0.01 x10^3/uL (0-0.5); Hematocrit 28.3 % (35-47); Hemoglobin 8.6 g/dL (12.0-16.0); IMMATURE GRAN # 0.28 x10^3u/L (0.00-0.03); IMMATURE GRAN % 1.4 % (0.00-0.4); Lymphocyte (Absolute #) 2.16 x10^3/uL (1.0-4.6); Lymphocytes % 10.6 % (24.0-44.0); Mean Cell Volume 79.3 fL (78-100); Mean Corpuscular Hemoglobin 24.1 pg (26-32); Mean Corpuscular Hgb Concent. 30.4 g/dL (32-36); Mean Platelet Volume 8.2 fL (7.5-11.0); Monocyte (Absolute #) 1.54 x10^3/uL (0.0-1.3); Monocytes % 7.6 % (0.0-12.0); Neutrophil % 80.3 % (36.0-66.0); Platelet Count 525 x10^3/uL (150-450); Red Blood Count 3.57 x10^6/uL (4.1-5.4); Red Cell Distribution Width 18.3 % (11.5-14.0); White Blood Count 20.4 x10^3/uL (4.0-10.5)
[2023-07-21 06:00] LABS: ALBUMIN 2.3 g/dL (3.5-5.0); ANION GAP 7.6 MEQ/L (5-15); BILIRUBIN,TOTAL 0.5 mg/dL (0.2-1.3); Calcium 8.3 mg/dL (8.4-10.2); Creatinine 1 0.42 mg/dL (0.52-1.04); EST GLOMERULAR FILTRATION RATE 122.1 ML/MIN; MAGNESIUM 1.4 mg/dL (1.6-2.3); Potassium 3.8 mmol/L (3.5-5.1); Total Protein 5.4 g/dL (6.3-8.2)
[2023-07-21 06:23] LABS: Slide Review 1 YES
[2023-07-21 09:20] LABS: Iron 22 ug/dL (37-170); Iron Saturation 14 % (20-39); TIBC 159 ug/dL (265-462)
--- NOTE | 2023-07-21 09:58 | PCM.NOTE ---
Date and Time: 07/21/23 0662 Subjective Assessment: Ms. DOUGLAS is a 47 year old female with a past medical history significant for hypertension, mixed connective tissue disease, and COPD. She presented to the hospital on 07/17 with complaints of increasing weakness, lower abdominal pain, and cough associated with yellow green sputum. She was found to have an elevated WBC count of 25k on admission. She she recently saw her food equipment service technician (Dr. Sutton) who held her Plaquenil. She has had some low grade temps but no fever/chills. No chest pain but persistent shortness of breath. No nausea or vomiting but significant diarrhea. Initial labs were also notable for a potassium of 2.6 and magnesium of 1.3. She was started on IVFs, received doses of Mg/K and given antibiotics in the ER. CT chest negative for PE, but does show RUL/RLL masses with likely metastatic disease. Reports that she has recently lost 15 lbs in three months and has frequent night sweats. Discussed CT chest finding showing new RUL/RLL masses which are likely malignant. Patient states she was aware of a nodule that has been under surveillance by Dr. Correia her manufacturing associate, but did not know about the other masses. Patient is agreeable to see oncology as OP for evaluation. At this time she does not want any further imaging, she would like to wait to discuss with oncology. She reports smoking up to 2 ppd since teens. She has not smoked now for 3 weeks and no longer wants to. WBC improved today. She is 92%- Room air. She is no longer SOB but has continued weakness. Will have PT work with pt tomorrow to eval for any home needs. She is declining home care and explains her helps her with everything. - Review of Systems Constitutional: Weakness, No Fever, No Chills Eyes: No Symptoms Ears, Nose, & Throat: No Symptoms Respiratory: No Cough, No Short Of Breath Cardiac: No Chest Pain, No Edema, No Syncope Abdominal/Gastrointestinal: No Abdominal Pain, No Nausea, No Vomiting, No Diarrhea Genitourinary Symptoms: No Dysuria Musculoskeletal: No Back Pain, No Neck Pain Skin: No Rash Neurological: No Dizziness, No Focal Weakness, No Sensory Changes Psychological: No Symptoms Endocrine: No Symptoms Hematologic/Lymphatic: No Symptoms Immunological/Allergic: No Symptoms Objective Exam General Appearance: no apparent distress, thin Neurologic Exam: alert, oriented x 3, cooperative, normal mood/affect, nml cerebellar function, sensation nml, motor weakness, No motor deficits Skin Exam: warm, dry, pale Eye Exam: PERRL, EOMI, eyes nml inspection Ears, Nose, Throat Exam: normal ENT inspection, pharynx normal, moist mucous membranes Neck Exam: normal inspection, non-tender, supple, full range of motion Respiratory Exam: normal breath sounds, lungs clear, No respiratory distress Cardiovascular Exam: regular rate/rhythm, normal heart sounds Gastrointestinal/Abdomen Exam: soft, No tenderness, No mass Extremity Exam: normal inspection, normal range of motion Back Exam: normal inspection, normal range of motion, No CVA tenderness, No vertebral tenderness Pelvic Exam: deferred Rectal Exam: deferred Objective Data Vital Signs: Vital Signs - 24 hr Temp Pulse Resp BP Pulse Ox 07/21/23 08:39 92 H 16 92 L 07/21/23 07:40 98.5 F 106 H 19 120/70 96 07/21/23 04:23 107 H 16 90 L 07/21/23 04:00 98.3 F 106 H 18 120/58 94 L 07/20/23 23:27 98.4 F 101 H 18 90/53 97 07/20/23 20:00 98.5 F 101 H 23 107/59 94 L 07/20/23 18:52 103 H 16 93 L 07/20/23 16:21 97 H 18 93 L 07/20/23 16:00 98 F 102 H 17 100/65 98 07/20/23 12:00 97.7 F 87 16 121/64 98 Pain Assessment - Last Documented Pain Intensity 0 Intake and Output: Intake & Output 07/18/23 07/19/23 07/20/23 07/21/23 11:59 11:59 11:59 11:59 Intake Total 680 3680 3515 Balance 680 3680 3515 Weight 50.3 kg Lab Results: Lab Results-Last 24 Hours 07/20/23 07/20/23 07/21/23 Range/Units 06:50 09:22 05:20 WBC 29.4 H* 20.4 H (4.0-10.5) x10^3/uL RBC 3.64 L 3.57 L (4.1-5.4) x10^6/uL Hgb 8.9 L 8.6 L (12.0-16.0) g/dL Hct 29.1 L 28.3 L (35-47) % MCV 79.9 79.3 (78-100) fL MCH 24.5 L 24.1 L (26-32) pg MCHC 30.6 L 30.4 L (32-36) g/dL RDW 18.1 H 18.3 H (11.5-14.0) % Plt Count 572 H 525 H (150-450) x10^3/uL MPV 8.2 8.2 (7.5-11.0) fL Gran % 80.3 H (36.0-66.0) % Immature Gran % (Auto) 1.4 H (0.00-0.4) % Nucleat RBC Rel Count 0.0 (0.00-0.1) % Eos # (Auto) 0.01 (0-0.5) x10^3/uL Immature Gran # (Auto) 0.28 H (0.00-0.03) x10^3u/L Absolute Lymphs (auto) 2.16 (1.0-4.6) x10^3/uL Absolute Monos (auto) 1.54 H (0.0-1.3) x10^3/uL Absolute Nucleated RBC 0.00 (0.00-0.01) x10^3u/L Lymphocytes % 10.6 L (24.0-44.0) % Monocytes % 7.6 (0.0-12.0) % Eosinophils % 0.0 (0.00-5.0) % Basophils % 0.1 (0.0-0.4) % Absolute Granulocytes 16.35 H (1.4-6.9) x10^3/uL Segmented Neutrophils 86 H (36.0-66.0) % Band Neutrophils 4 H (0.0-2.0) % Lymphocytes (Manual) 8 L (24-44) % Monocytes (Manual) 2 (0.0-12.0) % Basophils # 0.03 (0-0.4) x10^3/uL Platelet Estimate INCREASED (NORMAL) RBC Morphology ABNORMAL Poikilocytosis 1+ Anisocytosis 1+ Smear Path Review Pending Sodium (135-145) mmol/L Potassium (3.5-5.1) mmol/L Chloride (98-107) mmol/L Carbon Dioxide (22-30) mmol/L Anion Gap (5-15) MEQ/L BUN (7-17) mg/dL Creatinine (0.52-1.04) mg/dL Estimated GFR ML/MIN Glucose (74-106) mg/dL Hemoglobin A1c (4.5-6.0) % Calcium (8.4-10.2) mg/dL Magnesium (1.6-2.3) mg/dL Iron (37-170) ug/dL TIBC (265-462) ug/dL Iron Saturation (20-39) % Total Bilirubin (0.2-1.3) mg/dL AST (14-36) U/L ALT (0-35) U/L Alkaline Phosphatase (38-126) U/L Serum Total Protein (6.3-8.2) g/dL Albumin (3.5-5.0) g/dL Nasal Screen MRSA (PCR) NOT DETECTED (NEGATIVE) Slides for Path Review YES 07/21/23 07/21/23 07/21/23 Range/Units 05:20 05:20 05:20 WBC (4.0-10.5) x10^3/uL RBC (4.1-5.4) x10^6/uL Hgb (12.0-16.0) g/dL Hct (35-47) % MCV (78-100) fL MCH (26-32) pg MCHC (32-36) g/dL RDW (11.5-14.0) % Plt Count (150-450) x10^3/uL MPV (7.5-11.0) fL Gran % (36.0-66.0) % Immature Gran % (Auto) (0.00-0.4) % Nucleat RBC Rel Count (0.00-0.1) % Eos # (Auto) (0-0.5) x10^3/uL Immature Gran # (Auto) (0.00-0.03) x10^3u/L Absolute Lymphs (auto) (1.0-4.6) x10^3/uL Absolute Monos (auto) (0.0-1.3) x10^3/uL Absolute Nucleated RBC (0.00-0.01) x10^3u/L Lymphocytes % (24.0-44.0) % Monocytes % (0.0-12.0) % Eosinophils % (0.00-5.0) % Basophils % (0.0-0.4) % Absolute Granulocytes (1.4-6.9) x10^3/uL Segmented Neutrophils (36.0-66.0) % Band Neutrophils (0.0-2.0) % Lymphocytes (Manual) (24-44) % Monocytes (Manual) (0.0-12.0) % Basophils # (0-0.4) x10^3/uL Platelet Estimate (NORMAL) RBC Morphology Poikilocytosis Anisocytosis Smear Path Review Sodium 136 (135-145) mmol/L Potassium 3.8 (3.5-5.1) mmol/L Chloride 105 (98-107) mmol/L Carbon Dioxide 27 (22-30) mmol/L Anion Gap 7.6 (5-15) MEQ/L BUN 6 L (7-17) mg/dL Creatinine 0.42 L (0.52-1.04) mg/dL Estimated GFR 122.1 ML/MIN Glucose 89 (74-106) mg/dL Hemoglobin A1c 5.73 (4.5-6.0) % Calcium 8.3 L (8.4-10.2) mg/dL Magnesium 1.4 L (1.6-2.3) mg/dL Iron 22 L (37-170) ug/dL TIBC 159 L (265-462) ug/dL Iron Saturation 14 L (20-39) % Total Bilirubin 0.50 (0.2-1.3) mg/dL AST 83 H (14-36) U/L ALT 36 H (0-35) U/L Alkaline Phosphatase 115 (38-126) U/L Serum Total Protein 5.4 L (6.3-8.2) g/dL Albumin 2.3 L (3.5-5.0) g/dL Nasal Screen MRSA (PCR) (NEGATIVE) Slides for Path Review Radiology Exams: Radiology Procedures Category Date Time Status VENOUS BILATERAL EXTREMITY [US] Stat Exams 07/19/23 14:16 Completed Assessment/Plan (1) Pneumonia Current Visit: Yes Status: Acute Qualifiers: Laterality: right Assessment & Plan: -Supplemental oxygen with spo2 goal >92%/DuoNebs- currenlty RA 92% -WBC improved 20.4 - Afebrile - Continue levaquin - Baseline oxygen is 3L at night - Sputum culture pending - BC x2 negative - Pro darian 07/17- 0.145 Code(s): J18.9 - PNEUMONIA, UNSPECIFIED ORGANISM (2) Lung mass Current Visit: Yes Status: Acute Assessment & Plan: -CT scan reviewed showing New large right upper and right lower lobe noncalcified lung masses as detailed worrisome for malignancy. 3. New right hilar prominent lymph node probably metastatic. 4. New right upper lobe interstitial alveolar opacities with tiny effusion probably pneumonia. -Long discussion had with patient regarding results. -will refer to oncology on discharge for evaluation, patient would like to discuss with oncology before any further testing including scans are performed Code(s): R91.8 - OTHER NONSPECIFIC ABNORMAL FINDING OF LUNG FIELD (3) Patient underweight Current Visit: Yes Status: Acute Assessment & Plan: - BMI 17.9 - nutrition consult - recent 15 lb weight loss - possible lung malignancy per CT results Code(s): R63.6 - UNDERWEIGHT (4) Weakness Current Visit: Yes Status: Acute Assessment & Plan: - Pt eval for home needs - 2:2 Pneumonia/ ? malignancy as seen on CT chest Code(s): R53.1 - WEAKNESS (5) Hypokalemia Current Visit: Yes Status: Resolved Assessment & Plan: - resolved Code(s): E87.6 - HYPOKALEMIA (6) Hypomagnesemia Current Visit: Yes Status: Acute Assessment & Plan: - Mg+ 1.4 replaced- trend Code(s): E83.42 - HYPOMAGNESEMIA (7) Mixed connective tissue disease Current Visit: Yes Status: Chronic Assessment & Plan: -Follow OP with rheumatology, was on plaquenil which is being held for now due to adverse reaction. Code(s): M35.1 - OTHER OVERLAP SYNDROMES (8) UTI (urinary tract infection) Current Visit: Yes Status: Resolved Assessment & Plan: - UC negative Code(s): N39.0 - URINARY TRACT INFECTION, SITE NOT SPECIFIED (9) Hypertension Current Visit: No Status: Chronic Assessment & Plan: - Continue Coreg - Hold losartan VTE: Lovenox Next of Kin: Dorene Renae [phone] D/C plan: 1-2 days Code status: Full Code(s): I10 - ESSENTIAL (PRIMARY) HYPERTENSION
[2023-07-21 10:17] LABS: Folate (Folic Acid) 2.28 ng/mL (2.76 - >20)
[2023-07-21] MEDS: MAG-OX 400 PO ONE (15:43)
[2023-07-22 05:03] LABS: Hematocrit 27.4 % (35-47); Hemoglobin 8.4 g/dL (12.0-16.0); Mean Cell Volume 78.5 fL (78-100); Mean Corpuscular Hemoglobin 24.1 pg (26-32); Mean Corpuscular Hgb Concent. 30.7 g/dL (32-36); Mean Platelet Volume 8.3 fL (7.5-11.0); Platelet Count 502 x10^3/uL (150-450); Red Blood Count 3.49 x10^6/uL (4.1-5.4); Red Cell Distribution Width 18.3 % (11.5-14.0)
[2023-07-22 05:34] LABS: ALBUMIN 2.1 g/dL (3.5-5.0); ANION GAP 7.5 MEQ/L (5-15); BILIRUBIN,TOTAL 0.6 mg/dL (0.2-1.3); Creatinine 1 0.4 mg/dL (0.52-1.04); EST GLOMERULAR FILTRATION RATE 123.5 ML/MIN; Potassium 3.3 mmol/L (3.5-5.1); Total Protein 5.4 g/dL (6.3-8.2)
[2023-07-22 05:37] LABS: White Blood Count 29.6 x10^3/uL (4.0-10.5)
[2023-07-22] MEDS: Klor Con PO ONE (06:22)
[2023-07-22] MEDS: Klor Con PO SCH (08:32)
--- NOTE | 2023-07-22 09:46 | XRAY ---
Indication: Increased oxygen demand. Comparison: July 17, 2023 PA/lateral chest demonstrates interval developing small bibasilar effusions without focal infiltrate or cardiomegaly. Remaining chest unchanged again with COPD and CT proven right lung masses.
[2023-07-22] MEDS: FEOSOL 325 MG PO SCH (10:47)
[2023-07-22] MEDS: FOLATE 1 MG PO SCH (10:47)
[2023-07-22] MEDS ORDERED: BENADRYL 25 MG CAPSULE PO PRN (10:58)
[2023-07-22 11:05] LABS: Appearance Clear (Clear); Bacteria Few /HPF (None Seen); Bilirubin Negative (Negative); Blood Negative (Negative); Epithelial Cells Moderate /HPF (None Seen); Glucose, Urine Negative (Negative); Hyaline Casts NONE SEEN /LPF (0-2); Ketones Negative (Negative); Leukocyte Esterase Trace (Negative); Nitrite Negative (Negative); Protein,Urine Dip Trace (Negative); RBC 0-2 /HPF (0-5); Specific Gravity 1.015 (1.005-1.030)
[2023-07-22 11:09] LABS: ADD URINE CULTURE? NO (NO)
--- NOTE | 2023-07-22 11:35 | PCM.NOTE ---
Date and Time: 07/22/23 1116 Subjective Assessment: 07/21/23 Ms. DOUGLAS is a 47 year old female with a past medical history significant for hypertension, mixed connective tissue disease, and COPD. She presented to the hospital on 07/17 with complaints of increasing weakness, lower abdominal pain, and cough associated with yellow green sputum. She was found to have an elevated WBC count of 25k on admission. She she recently saw her production checker (Dr. Sutton) who held her Plaquenil. She has had some low grade temps but no fever/chills. No chest pain but persistent shortness of breath. No nausea or vomiting but significant diarrhea. Initial labs were also notable for a potassium of 2.6 and magnesium of 1.3. She was started on IVFs, received doses of Mg/K and given antibiotics in the ER. CT chest negative for PE, but does show RUL/RLL masses with likely metastatic disease. Reports that she has recently lost 15 lbs in three months and has frequent night sweats. Discussed CT chest finding showing new RUL/RLL masses which are likely malignant. Patient states she was aware of a nodule that has been under surveillance by Dr. Correia her ceramic tiler, but did not know about the other masses. Patient is agreeable to see oncology as OP for evaluation. At this time she does not want any further imaging, she would like to wait to discuss with oncology. She reports smoking up to 2 ppd since teens. She has not smoked now for 3 weeks and no longer wants to. WBC improved today. She is 92%- Room air. She is no longer SOB but has continued weakness. Will have PT work with pt tomorrow to eval for any home needs. She is declining home care and explains her helps her with everything. 07/22/23 Pt resting in bed. Overnight she developed a temp of 99.2, and now on 10Loxymask. Yesterday she was not requiring oxygen. Pulmonology consulted. She has now been here for 5 days. WBC worse 29.6. Antibiotics changed to Zosyn. BC x2 redrawn. HR elevated. Lactic acid WNL, procal 0.168. Repeat CXR shows demonstrates interval developing small bibasilar effusions without focal infiltrate or cardiomegaly. Daily IV lasix added. Dr. Cifuentes and I both discussed again with pt need for further testing and evaluation of lung nodule, she refuses any further testing or scans. She is not willing to have bronch or biopsy if needed. She is not willing to transfer to [facility] as her ceramic tiler Dr. Correia is there. She explained she does not like [place] and will not go there. Discussed risk of refusing further evaluation including need for intubation. She wants to think about this and discuss with . Discussed code status with her and currently she is a full code and wants to remain that way. She is willing to see Dr. Johnson here. She denies CP, Abd pain, N/V/D. - Review of Systems Constitutional: Fever, Fatigue, Weakness, Weight Loss, No Chills Eyes: No Symptoms Ears, Nose, & Throat: No Symptoms Respiratory: Short Of Breath, No Cough Cardiac: Edema (BLLE), No Chest Pain, No Syncope Abdominal/Gastrointestinal: No Abdominal Pain, No Nausea, No Vomiting, No Diarrhea Genitourinary Symptoms: No Dysuria Musculoskeletal: No Back Pain, No Neck Pain Skin: No Rash Neurological: No Dizziness, No Focal Weakness, No Sensory Changes Psychological: No Symptoms Endocrine: No Symptoms Hematologic/Lymphatic: No Symptoms Immunological/Allergic: No Symptoms Objective Exam General Appearance: no apparent distress, alert, thin Neurologic Exam: alert, oriented x 3, cooperative, normal mood/affect, nml cerebellar function, sensation nml, No motor deficits Skin Exam: warm, dry, other (redding) Eye Exam: PERRL, EOMI, eyes nml inspection Ears, Nose, Throat Exam: normal ENT inspection, pharynx normal, moist mucous membranes Neck Exam: normal inspection, non-tender, supple, full range of motion Respiratory Exam: normal breath sounds, lungs clear, No respiratory distress Cardiovascular Exam: regular rate/rhythm, normal heart sounds, tachycardia, edema (BL feet +3 pitting) Gastrointestinal/Abdomen Exam: soft, No tenderness, No mass Extremity Exam: normal inspection, normal range of motion Back Exam: normal inspection, normal range of motion, No CVA tenderness, No vertebral tenderness Pelvic Exam: deferred Rectal Exam: deferred Objective Data Vital Signs: Vital Signs - 24 hr Temp Pulse Resp BP Pulse Ox 07/22/23 08:00 99.3 F 70 16 105/54 95 07/22/23 05:56 108 H 16 98 07/22/23 03:54 99.2 F 108 H 21 96/53 98 07/22/23 02:31 93 L 07/22/23 00:39 90 L 07/22/23 00:37 85 L 07/21/23 23:14 109 H 20 114/56 95 07/21/23 20:00 98.4 F 113 H 22 111/59 92 L 07/21/23 19:17 92 L 07/21/23 19:16 112 H 18 92 L 07/21/23 16:00 109 H 17 138/72 91 L 07/21/23 12:00 99.8 F 104 H 17 101/58 90 L Pain Assessment - Last Documented Pain Intensity 0 Intake and Output: Intake & Output 07/19/23 07/20/23 07/21/23 07/22/23 11:59 11:59 11:59 11:59 Intake Total 680 3680 3515 1960 Output Total 825 Balance 680 3680 3515 1135 Weight 50.3 kg Lab Results: Lab Results-Last 24 Hours 07/22/23 07/22/23 07/22/23 Range/Units 04:26 04:26 04:26 WBC 29.6 H* (4.0-10.5) x10^3/uL RBC 3.49 L (4.1-5.4) x10^6/uL Hgb 8.4 L (12.0-16.0) g/dL Hct 27.4 L (35-47) % MCV 78.5 (78-100) fL MCH 24.1 L (26-32) pg MCHC 30.7 L (32-36) g/dL RDW 18.3 H (11.5-14.0) % Plt Count 502 H (150-450) x10^3/uL MPV 8.3 (7.5-11.0) fL Sodium 131 L (135-145) mmol/L Potassium 3.3 L (3.5-5.1) mmol/L Chloride 99 (98-107) mmol/L Carbon Dioxide 27 (22-30) mmol/L Anion Gap 7.5 (5-15) MEQ/L BUN 5 L (7-17) mg/dL Creatinine 0.40 L (0.52-1.04) mg/dL Estimated GFR 123.5 ML/MIN Glucose 100 (74-106) mg/dL Lactic Acid (0.4-2.0) Calcium 8.0 L (8.4-10.2) mg/dL Magnesium 1.2 L (1.6-2.3) mg/dL Total Bilirubin 0.60 (0.2-1.3) mg/dL AST 42 H (14-36) U/L ALT 29 (0-35) U/L Alkaline Phosphatase 103 (38-126) U/L Serum Total Protein 5.4 L (6.3-8.2) g/dL Albumin 2.1 L (3.5-5.0) g/dL Procalcitonin (0.030-0.080) ng/mL Urine Color (Yellow) Urine Appearance (Clear) Urine pH (4.6-8.0) Ur Specific [place] (1.005-1.030) Urine Protein (Negative) Urine Glucose (UA) (Negative) mg/dL Urine Ketones (Negative) Urine Blood (Negative) Urine Nitrite (Negative) Urine Bilirubin (Negative) Urine Urobilinogen (0.2) mg/dL Ur Leukocyte Esterase (Negative) U Hyaline Cast (Auto) (0-2) /LPF Urine Microscopic RBC (0-5) /HPF Urine Microscopic WBC (0-5) /HPF Ur Epithelial Cells (None Seen) /HPF Urine Bacteria (None Seen) /HPF Urine Culture Reflexed (NO) 07/22/23 07/22/23 07/22/23 Range/Units 05:00 07:30 10:56 WBC (4.0-10.5) x10^3/uL RBC (4.1-5.4) x10^6/uL Hgb (12.0-16.0) g/dL Hct (35-47) % MCV (78-100) fL MCH (26-32) pg MCHC (32-36) g/dL RDW (11.5-14.0) % Plt Count (150-450) x10^3/uL MPV (7.5-11.0) fL Sodium (135-145) mmol/L Potassium (3.5-5.1) mmol/L Chloride (98-107) mmol/L Carbon Dioxide (22-30) mmol/L Anion Gap (5-15) MEQ/L BUN (7-17) mg/dL Creatinine (0.52-1.04) mg/dL Estimated GFR ML/MIN Glucose (74-106) mg/dL Lactic Acid 0.8 (0.4-2.0) Calcium (8.4-10.2) mg/dL Magnesium (1.6-2.3) mg/dL Total Bilirubin (0.2-1.3) mg/dL AST (14-36) U/L ALT (0-35) U/L Alkaline Phosphatase (38-126) U/L Serum Total Protein (6.3-8.2) g/dL Albumin (3.5-5.0) g/dL Procalcitonin 0.168 H (0.030-0.080) ng/mL Urine Color Dark Yellow A (Yellow) Urine Appearance Clear (Clear) Urine pH 7.0 (4.6-8.0) Ur Specific [place] 1.015 (1.005-1.030) Urine Protein Trace A (Negative) Urine Glucose (UA) Negative (Negative) mg/dL Urine Ketones Negative (Negative) Urine Blood Negative (Negative) Urine Nitrite Negative (Negative) Urine Bilirubin Negative (Negative) Urine Urobilinogen 2.0 A (0.2) mg/dL Ur Leukocyte Esterase Trace A (Negative) U Hyaline Cast (Auto) NONE SEEN (0-2) /LPF Urine Microscopic RBC 0-2 (0-5) /HPF Urine Microscopic WBC 3-5 (0-5) /HPF Ur Epithelial Cells Moderate A (None Seen) /HPF Urine Bacteria Few A (None Seen) /HPF Urine Culture Reflexed NO (NO) Radiology Exams: Radiology Procedures Category Date Time Status CHEST 2 VIEWS (PA AND LAT) Stat Exams 07/22/23 09:15 Completed Assessment/Plan (1) Pneumonia Current Visit: Yes Status: Acute Qualifiers: Laterality: right Code(s): J18.9 - PNEUMONIA, UNSPECIFIED ORGANISM (2) Lung mass Current Visit: Yes Status: Acute Code(s): R91.8 - OTHER NONSPECIFIC ABNORMAL FINDING OF LUNG FIELD (3) Patient underweight Current Visit: Yes Status: Acute Code(s): R63.6 - UNDERWEIGHT (4) Weakness Current Visit: Yes Status: Acute Code(s): R53.1 - WEAKNESS (5) Hypokalemia Current Visit: Yes Status: Resolved Code(s): E87.6 - HYPOKALEMIA (6) Hypomagnesemia Current Visit: Yes Status: Acute Code(s): E83.42 - HYPOMAGNESEMIA (7) Mixed connective tissue disease Current Visit: Yes Status: Chronic Code(s): M35.1 - OTHER OVERLAP SYNDROMES (8) UTI (urinary tract infection) Current Visit: Yes Status: Resolved Code(s): N39.0 - URINARY TRACT INFECTION, SITE NOT SPECIFIED (9) Hypertension Current Visit: No Status: Chronic Assessment & Plan: (1) Pneumonia Current Visit: Yes Status: Acute Qualifiers: Laterality: right Assessment & Plan: -Supplemental oxygen with spo2 goal >92%/DuoNebs- currenlty RA 92% -WBC improved 20.4 - Afebrile - Continue levaquin - Baseline oxygen is 3L at night - Sputum culture pending - BC x2 negative - Pro darian 07/17- 0.145 07/21 - Temp of 99.2 overnight - Now on 10L oxymask - + tachycardia - repeat BC x2 - change antibiotics to Zosyn - PRN benadryl for hives if needed - Lactic acid 0.8 - Procal increased 0.168 - Pulmonology consult - CXR PA/lateral chest demonstrates interval developing small bibasilar effusions without focal infiltrate or cardiomegaly. Remaining chest unchanged again with COPD and CT proven right lung masses. - IV lasix daily started - refuses any further imaging or testing except labs Code(s): J18.9 - PNEUMONIA, UNSPECIFIED ORGANISM (2) Lung mass Current Visit: Yes Status: Acute Assessment & Plan: -CT scan reviewed showing New large right upper and right lower lobe noncalcified lung masses as detailed worrisome for malignancy. 3. New right hilar prominent lymph node probably metastatic. 4. New right upper lobe interstitial alveolar opacities with tiny effusion probably pneumonia. -Long discussion had with patient regarding results. -will refer to oncology on discharge for evaluation, patient would like to discuss with oncology before any further testing including scans are performed Code(s): R91.8 - OTHER NONSPECIFIC ABNORMAL FINDING OF LUNG FIELD (3) Patient underweight Current Visit: Yes Status: Acute Assessment & Plan: - BMI 17.9 - nutrition consult - recent 15 lb weight loss - possible lung malignancy per CT results Code(s): R63.6 - UNDERWEIGHT (4) Weakness Current Visit: Yes Status: Acute Assessment & Plan: - Pt eval for home needs - 2:2 Pneumonia/ ? malignancy as seen on CT chest Code(s): R53.1 - WEAKNESS (5) Hypokalemia Current Visit: Yes Status: Resolved Assessment & Plan: - resolved Code(s): E87.6 - HYPOKALEMIA (6) Hypomagnesemia Current Visit: Yes Status: Acute Assessment & Plan: - Mg+ 1.4 replaced- trend 07/21 - Mg+ 1.2- replaced Code(s): E83.42 - HYPOMAGNESEMIA (7) Mixed connective tissue disease Current Visit: Yes Status: Chronic Assessment & Plan: -Follow OP with rheumatology, was on plaquenil which is being held for now due to adverse reaction. Code(s): M35.1 - OTHER OVERLAP SYNDROMES (8) UTI (urinary tract infection) Current Visit: Yes Status: Resolved Assessment & Plan: - UC negative 07/21 - Repeat UA with C&S Code(s): N39.0 - URINARY TRACT INFECTION, SITE NOT SPECIFIED (9) Hypertension Current Visit: No Status: Chronic Assessment & Plan: - Continue Coreg - Hold losartan Code(s): I10 - ESSENTIAL (PRIMARY) HYPERTENSION (10) Iron (Fe) deficiency anemia Current Visit: Yes Status: Chronic Assessment & Plan: - iron panel reviwed - Ferrous sulfate daily started VTE: Lovenox Next of Kin: Dorene Renae [phone] D/C plan:2-3 days Code status: Full Code(s): D50.9 - IRON DEFICIENCY ANEMIA, UNSPECIFIED
[2023-07-22] MEDS ORDERED: PIPERACILLIN/TAZOBACTAM 3.375 GM in Sodium Chloride 100ML MINI-BAG PLUS 100 ML IV SCH (12:00)
[2023-07-22] MEDS: MAGNESIUM SULF 2 G/50 ML BAG 2 GM/50 ML PIGGYBACK IV ONE (12:44)
[2023-07-22] MEDS: Lasix 20 MG/2 ML IV SCH (12:44)
[2023-07-22] MEDS: PIPERACILLIN/TAZOBACTAM 4.5 GM in Sodium Chloride 100ML MINI-BAG PLUS 100 ML IV SCH (14:27)
[2023-07-23 04:36] LABS: Hematocrit 23.4 % (35-47); Hemoglobin 7.4 g/dL (12.0-16.0); Mean Cell Volume 77.2 fL (78-100); Mean Corpuscular Hemoglobin 24.4 pg (26-32); Mean Corpuscular Hgb Concent. 31.6 g/dL (32-36); Mean Platelet Volume 8.3 fL (7.5-11.0); Platelet Count 427 x10^3/uL (150-450); Red Blood Count 3.03 x10^6/uL (4.1-5.4); Red Cell Distribution Width 18.5 % (11.5-14.0)
[2023-07-23 04:46] LABS: White Blood Count 28.9 x10^3/uL (4.0-10.5)
[2023-07-23 04:52] LABS: ALBUMIN 2.2 g/dL (3.5-5.0); ANION GAP 7.6 MEQ/L (5-15); BILIRUBIN,TOTAL 0.5 mg/dL (0.2-1.3); Calcium 7.9 mg/dL (8.4-10.2); Creatinine 1 0.44 mg/dL (0.52-1.04); EST GLOMERULAR FILTRATION RATE 120.7 ML/MIN; Potassium 3.9 mmol/L (3.5-5.1); Total Protein 5.3 g/dL (6.3-8.2)
[2023-07-23] MEDS: TYLENOL 325 MG PO PRN ×2 (06:29→17:54)
--- NOTE | 2023-07-23 08:43 | CONS ---
CONSULT DATE: 07/22/2023 HISTORY: Miss Bea Villarreal is 47-year-old woman who had been admitted with complaints of cough, shortness of breath and wheezing. The patient is clinically suspected of having pneumonia. Since admission, she has been treated for chronic obstructive pulmonary disease exacerbation. The patient had a CT chest performed that was negative for pulmonary embolism but did show a large right pleural based mass along with right lower lobe mass which are both new. In addition, right-sided adenopathy was noted as well. Apparently an option of biopsy was discussed by Hospitalist with the patient and the patient has declined to have any biopsy or any additional treatment. The patient is followed by Dr. Correia. She reportedly had a lung nodule that is being followed; however, exact duration of previous scans is unknown. PAST MEDICAL HISTORY: Positive for history of chronic obstructive pulmonary disease. The patient appears to have had significantly advanced chronic obstructive pulmonary disease with reduced effort tolerance. She also has history of hypertension for which she is on carvedilol and losartan. PAST SURGICAL HISTORY: No recent surgery. PERSONAL AND SOCIAL HISTORY: She is a two pack per day smoker. She lives with family. MEDICATIONS: Home and current medications are reviewed. ALLERGIES: PENICILLIN G. REVIEW OF SYSTEMS: Positive for about 15-pound weight loss in past three months. The patient denies hemoptysis or pleuritic pain. PHYSICAL EXAMINATION: This is a middle-aged woman who appears chronically ill. Vital signs noted. HEENT: Normocephalic. NECK: Supple. CVS: First and second heart sounds normal, regular, rhythmic. RESPIRATORY: Shows diminished breath sounds, occasional rhonchi heard. ABDOMEN: Soft. EXTREMITIES: No edema is noted. LABORATORY DATA AND TESTS: Labs and radiology tests were all reviewed. ASSESSMENT: This is a 47-year-old woman admitted with: 1) Shortness of breath, which appears to be multifactorial largely due to chronic obstructive pulmonary disease with exacerbation. 2) Chronic hypoxemia. 3) Abnormal CT with lung masses involving right upper lobe and right lower lobe, both are highly concerning for primary malignancy. 4) Nicotine addiction. 5) History of hypertension. RECOMMENDATIONS: I had a long discussion with the patient in the presence of nursing staff. The patient is competent and respectfully refuses any additional evaluation concerning lung masses. Respecting her wishes, I have advised that the patient may consider Do Not Intubate status and may be discharged home with Hospice care. Other treatment was reviewed and I am in agreement with the same. Unfortunately, her overall prognosis appears poor. Thank you for allowing me to participate in the care of this patient.
[2023-07-23] MEDS: MAGNESIUM SULF 2 G/50 ML BAG 2 GM/50 ML PIGGYBACK IV ONE (09:09)
--- NOTE | 2023-07-23 11:14 | PCM.NOTE ---
Date and Time: 07/23/23 1049 Subjective Assessment: 07/21/23 Ms. DOUGLAS is a 47 year old female with a past medical history significant for hypertension, mixed connective tissue disease, and COPD. She presented to the hospital on 07/17 with complaints of increasing weakness, lower abdominal pain, and cough associated with yellow green sputum. She was found to have an elevated WBC count of 25k on admission. She she recently saw her purchasing administrative assistant (Dr. Sutton) who held her Plaquenil. She has had some low grade temps but no fever/chills. No chest pain but persistent shortness of breath. No nausea or vomiting but significant diarrhea. Initial labs were also notable for a potassium of 2.6 and magnesium of 1.3. She was started on IVFs, received doses of Mg/K and given antibiotics in the ER. CT chest negative for PE, but does show RUL/RLL masses with likely metastatic disease. Reports that she has recently lost 15 lbs in three months and has frequent night sweats. Discussed CT chest finding showing new RUL/RLL masses which are likely malignant. Patient states she was aware of a nodule that has been under surveillance by Dr. Correia her truck repair service estimator, but did not know about the other masses. Patient is agreeable to see oncology as OP for evaluation. At this time she does not want any further imaging, she would like to wait to discuss with oncology. She reports smoking up to 2 ppd since teens. She has not smoked now for 3 weeks and no longer wants to. WBC improved today. She is 92%- Room air. She is no longer SOB but has continued weakness. Will have PT work with pt tomorrow to eval for any home needs. She is declining home care and explains her helps her with everything. 07/22/23 Pt resting in bed. Overnight she developed a temp of 99.2, and now on 10Loxymask. Yesterday she was not requiring oxygen. Pulmonology consulted. She has now been here for 5 days. WBC worse 29.6. Antibiotics changed to Zosyn. BC x2 redrawn. HR elevated. Lactic acid WNL, procal 0.168. Repeat CXR shows demonstrates interval developing small bibasilar effusions without focal infiltrate or cardiomegaly. Daily IV lasix added. Dr. Cifuentes and I both discussed again with pt need for further testing and evaluation of lung nodule, she refuses any further testing or scans. She is not willing to have bronch or biopsy if needed. She is not willing to transfer to [facility] as her truck repair service estimator Dr. Correia is there. She explained she does not like [facility] and will not go there. Discussed risk of refusing further evaluation including need for intubation. She wants to think about this and discuss with . Discussed code status with her and currently she is a full code and wants to remain that way. She is willing to see Dr. Johnson here. She denies CP, Abd pain, N/V/D. 07/23/23 Pt resting in bed. She feels she is breathing better today, however she continues to require 9L oxymask and O2 is 90%. Will start steroids and LABA. She continued to have a fever overnight despite antibiotic change. Repeat blood cultures pending. Sputum culture + yeast, fluconazole IV started. Urine culture from repeat UA yesterday pending. Leukocytosis has not improved much. Pt is agreeable to CT scan of abd. today. Pulmonology consulted yesterday and no further recs provided. Pt is still unwilling to have any invasive procedures. She would like to see CT abd results and go from there. She refuses transfer at this time. She wants to be a DNR and signed paperwork. Case management discussed with pt in options for care. She would like to wait for CT before making decisions. She denies CP, Abd. pain, N/V/D. - Review of Systems Constitutional: Weight Loss, No Fever, No Chills Eyes: No Symptoms Ears, Nose, & Throat: No Symptoms Respiratory: Short Of Breath, No Cough Cardiac: No Chest Pain, No Edema, No Syncope Abdominal/Gastrointestinal: No Abdominal Pain, No Nausea, No Vomiting, No Diarrhea Genitourinary Symptoms: No Dysuria Musculoskeletal: No Back Pain, No Neck Pain Skin: No Rash Neurological: No Dizziness, No Focal Weakness, No Sensory Changes Psychological: No Symptoms Endocrine: No Symptoms Hematologic/Lymphatic: No Symptoms Immunological/Allergic: No Symptoms Objective Exam General Appearance: no apparent distress, alert, cachetic, thin Neurologic Exam: alert, oriented x 3, cooperative, normal mood/affect, nml cerebellar function, sensation nml, No motor deficits Skin Exam: normal color, warm, dry Eye Exam: PERRL, EOMI, eyes nml inspection Ears, Nose, Throat Exam: normal ENT inspection, pharynx normal, moist mucous membranes Neck Exam: normal inspection, non-tender, supple, full range of motion Respiratory Exam: normal breath sounds, diminished breath sounds (BLLL), No respiratory distress Cardiovascular Exam: regular rate/rhythm, normal heart sounds Gastrointestinal/Abdomen Exam: soft, No tenderness, No mass Extremity Exam: normal inspection, normal range of motion Back Exam: normal inspection, normal range of motion, No CVA tenderness, No vertebral tenderness Pelvic Exam: deferred Rectal Exam: deferred Objective Data Vital Signs: Vital Signs - 24 hr Temp Pulse Resp BP Pulse Ox 07/23/23 09:37 92 H 28 H 93 L 07/23/23 07:43 101 H 18 87/51 93 L 07/23/23 07:04 99.5 F 07/23/23 06:24 101.2 F 07/23/23 05:44 106 H 16 95 07/23/23 04:00 99.8 F 109 H 24 109/55 92 L 07/23/23 01:40 100 H 16 94 L 07/23/23 00:00 98.7 F 100 H 26 H 102/51 94 L 07/22/23 19:16 99.5 F 108 H 20 96/52 93 L 07/22/23 18:25 108 H 18 92 L 07/22/23 16:00 98.9 F 103 H 18 98/55 94 L 07/22/23 14:16 106 H 20 94 L 07/22/23 12:00 99.4 F 105 H 18 108/56 98 Pain Assessment - Last Documented Pain Intensity 0 Intake and Output: Intake & Output 07/20/23 07/21/23 07/22/23 07/23/23 11:59 11:59 11:59 11:59 Intake Total 3680 3515 1960 1080 Output Total 825 500 Balance 3680 3515 1135 580 Lab Results: Lab Results-Last 24 Hours 07/22/23 07/23/23 07/23/23 Range/Units 10:56 04:21 04:21 WBC 28.9 H* (4.0-10.5) x10^3/uL RBC 3.03 L (4.1-5.4) x10^6/uL Hgb 7.4 L (12.0-16.0) g/dL Hct 23.4 L (35-47) % MCV 77.2 L (78-100) fL MCH 24.4 L (26-32) pg MCHC 31.6 L (32-36) g/dL RDW 18.5 H (11.5-14.0) % Plt Count 427 (150-450) x10^3/uL MPV 8.3 (7.5-11.0) fL Sodium 130 L (135-145) mmol/L Potassium 3.9 (3.5-5.1) mmol/L Chloride 99 (98-107) mmol/L Carbon Dioxide 27 (22-30) mmol/L Anion Gap 7.6 (5-15) MEQ/L BUN 7 (7-17) mg/dL Creatinine 0.44 L (0.52-1.04) mg/dL Estimated GFR 120.7 ML/MIN Glucose 125 H (74-106) mg/dL Calcium 7.9 L (8.4-10.2) mg/dL Magnesium (1.6-2.3) mg/dL Total Bilirubin 0.50 (0.2-1.3) mg/dL AST 30 (14-36) U/L ALT 22 (0-35) U/L Alkaline Phosphatase 107 (38-126) U/L Serum Total Protein 5.3 L (6.3-8.2) g/dL Albumin 2.2 L (3.5-5.0) g/dL Urine Color Dark Yellow A (Yellow) Urine Appearance Clear (Clear) Urine pH 7.0 (4.6-8.0) Ur Specific Bartley 1.015 (1.005-1.030) Urine Protein Trace A (Negative) Urine Glucose (UA) Negative (Negative) mg/dL Urine Ketones Negative (Negative) Urine Blood Negative (Negative) Urine Nitrite Negative (Negative) Urine Bilirubin Negative (Negative) Urine Urobilinogen 2.0 A (0.2) mg/dL Ur Leukocyte Esterase Trace A (Negative) U Hyaline Cast (Auto) NONE SEEN (0-2) /LPF Urine Microscopic RBC 0-2 (0-5) /HPF Urine Microscopic WBC 3-5 (0-5) /HPF Ur Epithelial Cells Moderate A (None Seen) /HPF Urine Bacteria Few A (None Seen) /HPF Urine Culture Reflexed NO (NO) 07/23/23 Range/Units 04:21 WBC (4.0-10.5) x10^3/uL RBC (4.1-5.4) x10^6/uL Hgb (12.0-16.0) g/dL Hct (35-47) % MCV (78-100) fL MCH (26-32) pg MCHC (32-36) g/dL RDW (11.5-14.0) % Plt Count (150-450) x10^3/uL MPV (7.5-11.0) fL Sodium (135-145) mmol/L Potassium (3.5-5.1) mmol/L Chloride (98-107) mmol/L Carbon Dioxide (22-30) mmol/L Anion Gap (5-15) MEQ/L BUN (7-17) mg/dL Creatinine (0.52-1.04) mg/dL Estimated GFR ML/MIN Glucose (74-106) mg/dL Calcium (8.4-10.2) mg/dL Magnesium 1.5 L (1.6-2.3) mg/dL Total Bilirubin (0.2-1.3) mg/dL AST (14-36) U/L ALT (0-35) U/L Alkaline Phosphatase (38-126) U/L Serum Total Protein (6.3-8.2) g/dL Albumin (3.5-5.0) g/dL Urine Color (Yellow) Urine Appearance (Clear) Urine pH (4.6-8.0) Ur Specific Bartley (1.005-1.030) Urine Protein (Negative) Urine Glucose (UA) (Negative) mg/dL Urine Ketones (Negative) Urine Blood (Negative) Urine Nitrite (Negative) Urine Bilirubin (Negative) Urine Urobilinogen (0.2) mg/dL Ur Leukocyte Esterase (Negative) U Hyaline Cast (Auto) (0-2) /LPF Urine Microscopic RBC (0-5) /HPF Urine Microscopic WBC (0-5) /HPF Ur Epithelial Cells (None Seen) /HPF Urine Bacteria (None Seen) /HPF Urine Culture Reflexed (NO) Radiology Exams: Radiology Procedures Category Date Time Status ABDOMEN AND PELVIS W CONTRAST [CT] Urgent Exams 07/23/23 10:47 Ordered CHEST 2 VIEWS (PA AND LAT) Stat Exams 07/22/23 09:15 Completed Multi-Disciplinary Progress Notes: Multi-Disciplinary Progress Notes 07/22/23 12:29 Physical Therapy Note by Lelia(L#[id number])Blessing INITIATED P.T. EVAL THIS A.M. PT. IN BED ON 10 L O2 PER VENUE MASK. 02 SATS 98% AT REST. LE STRENGTH GROSSLY 3+-4-/5 THROUGHOUT. NOTED LL AND PEDAL EDEMA BILATERALLY. PT. REPORTS SHE HAS TAKEN A FEW STEPS W/ ASSIST OF NSG TO USE RESTROOM. PLOF- INDEPENDENT FUNCTIONAL MOBILITY AND ADL WITHOUT A.D. LIVES W/ SPOUSE AND KIDS. REPORTS SHE ONLY USED O2 AT NIGHT PRIOR TO ADMISSION. (3L). P.T. NOT INDICATED AT THIS TIME WHILE SUPPLEMENTAL O2 NEED IS SO GREAT. WILL MONITOR AND EVAL IF RESPIRATORY STATUS IMPROVES. Initialized on 07/22/23 12:29 - END OF NOTE 07/22/23 11:59 Case Management Note by Elham La NO CHANGE IN DC PLANS AT THIS TIME Initialized on 07/22/23 11:59 - END OF NOTE Assessment/Plan (1) Pneumonia Current Visit: Yes Status: Acute Qualifiers: Laterality: right Code(s): J18.9 - PNEUMONIA, UNSPECIFIED ORGANISM (2) Lung mass Current Visit: Yes Status: Acute Code(s): R91.8 - OTHER NONSPECIFIC ABNORMAL FINDING OF LUNG FIELD (3) Patient underweight Current Visit: Yes Status: Acute Code(s): R63.6 - UNDERWEIGHT (4) Weakness Current Visit: Yes Status: Acute Code(s): R53.1 - WEAKNESS (5) Hypokalemia Current Visit: Yes Status: Resolved Code(s): E87.6 - HYPOKALEMIA (6) Hypomagnesemia Current Visit: Yes Status: Acute Code(s): E83.42 - HYPOMAGNESEMIA (7) Mixed connective tissue disease Current Visit: Yes Status: Chronic Code(s): M35.1 - OTHER OVERLAP SYNDROMES (8) UTI (urinary tract infection) Current Visit: Yes Status: Resolved Code(s): N39.0 - URINARY TRACT INFECTION, SITE NOT SPECIFIED (9) Hypertension Current Visit: No Status: Chronic Code(s): I10 - ESSENTIAL (PRIMARY) HYPERTENSION (10) Iron (Fe) deficiency anemia Current Visit: Yes Status: Chronic Assessment & Plan: (1) Pneumonia Current Visit: Yes Status: Acute Qualifiers: Laterality: right Assessment & Plan: -Supplemental oxygen with spo2 goal >92%/DuoNebs- currenlty RA 92% -WBC improved 20.4 - Afebrile - Continue levaquin - Baseline oxygen is 3L at night - Sputum culture pending - BC x2 negative - Pro darian 07/17- 0.145 07/21 - Temp of 99.2 overnight - Now on 10L oxymask - + tachycardia - repeat BC x2 - change antibiotics to Zosyn - PRN benadryl for hives if needed - Lactic acid 0.8 - Procal increased 0.168 - Pulmonology consult - CXR PA/lateral chest demonstrates interval developing small bibasilar effusions without focal infiltrate or cardiomegaly. Remaining chest unchanged again with COPD and CT proven right lung masses. - IV lasix daily started - refuses any further imaging or testing except labs 07/22 - Sputum culture + yeast- Fluconazole IV started - WBC 28.9 - 9L oxymask 90% - steroids and LABA started Code(s): J18.9 - PNEUMONIA, UNSPECIFIED ORGANISM (2) Lung mass Current Visit: Yes Status: Acute Assessment & Plan: -CT scan reviewed showing New large right upper and right lower lobe noncalcified lung masses as detailed worrisome for malignancy. 3. New right hilar prominent lymph node probably metastatic. 4. New right upper lobe interstitial alveolar opacities with tiny effusion probably pneumonia. -Long discussion had with patient regarding results. -will refer to oncology on discharge for evaluation, patient would like to discuss with oncology before any further testing including scans are performed - pulmonology consulted- no recs 07/22 - Pt willing to have CT abd for further eval - signed DNR and considering hospice Code(s): R91.8 - OTHER NONSPECIFIC ABNORMAL FINDING OF LUNG FIELD (3) Patient underweight Current Visit: Yes Status: Acute Assessment & Plan: - BMI 17.9 - nutrition consult - recent 15 lb weight loss - possible lung malignancy per CT results Code(s): R63.6 - UNDERWEIGHT (4) Weakness Current Visit: Yes Status: Acute Assessment & Plan: - PT eval for home needs - 2:2 Pneumonia/ ? malignancy as seen on CT chest Code(s): R53.1 - WEAKNESS (5) Hypokalemia Current Visit: Yes Status: Resolved Assessment & Plan: - resolved Code(s): E87.6 - HYPOKALEMIA (6) Hypomagnesemia Current Visit: Yes Status: Acute Assessment & Plan: - Mg+ 1.4 replaced- trend 07/21 - Mg+ 1.2- replaced 07/22 - Mg+ 1.5- replaced- trend Code(s): E83.42 - HYPOMAGNESEMIA (7) Mixed connective tissue disease Current Visit: Yes Status: Chronic Assessment & Plan: -Follow OP with rheumatology, was on plaquenil which is being held for now due to adverse reaction. Code(s): M35.1 - OTHER OVERLAP SYNDROMES (8) UTI (urinary tract infection) Current Visit: Yes Status: Resolved Assessment & Plan: - UC negative 07/21 - Repeat UA with C&S Code(s): N39.0 - URINARY TRACT INFECTION, SITE NOT SPECIFIED (9) Hypertension Current Visit: No Status: Chronic Assessment & Plan: - Continue Coreg - Hold losartan Code(s): I10 - ESSENTIAL (PRIMARY) HYPERTENSION (10) Iron (Fe) deficiency anemia Current Visit: Yes Status: Chronic Assessment & Plan: - iron panel reviewed - Ferrous sulfate daily started 07/22 - hgb 7.4 - trend Code(s): D50.9 - IRON DEFICIENCY ANEMIA, UNSPECIFIED (11) Hyponatremia Current Visit: Yes Status: Acute Assessment & Plan: - Na+ 130- mild- trend Code(s): E87.1 - HYPO-OSMOLALITY AND HYPONATREMIA (12) Folate deficiency Current Visit: Yes Status: Acute Assessment & Plan: - B12 normal - daily folic acid started VTE: Lovenox Next of Kin: Dorene Renae [phone] D/C plan:2-3 days Code status: DNR/SCO Code(s): E53.8 - DEFICIENCY OF OTHER SPECIFIED B GROUP VITAMINS
[2023-07-23] MEDS: Advair Hfa 115/21 Common canister IH SCH (11:44)
--- NOTE | 2023-07-23 13:04 | XRAY ---
Indication: Lung carcinoma. Possible metastasis. Multiple contiguous axial images obtained through the abdomen and pelvis using 80 cc Isovue 370 contrast. Comparison: None Lung bases demonstrates right lower lobe lung mass reported on CT chest July 18, 2023. Since then, new bibasilar subsegmental atelectasis and small effusions, right greater than left. Heart not enlarged. Noncontrasted stomach and bowel loops appear nonobstructed. Posterior right lobe liver demonstrates 1 cm benign cyst. Tiny cul-de-sac fluid possibly physiologic from rupture/leaking cyst. No walled off fluid collection or free air. Remaining liver, gallbladder, pancreas, spleen, adrenal glands, kidneys, ureters, bladder, and uterus are unremarkable. Mild scattered aortoiliac calcifications. No AAA or pathologic retroperitoneal lymphadenopathy. Osseous structures intact with mild L5-S1 degenerative disc disease as evidence by broad-based disc bulge, endplate sclerosis/parenchyma and tiny vacuum disc phenomena. No suspicious bony lesions. Mild diffuse anasarca. Impression: 1. Right lower lobe lung mass reported on recent CT chest. Since then, new bibasilar subsegmental atelectasis and bibasilar effusions. 2. Mild diffuse anasarca. 3. Tiny cul-de-sac fluid presumed physiologic. 4. Chronic findings including 1 cm hepatic cyst, arteriosclerotic disease, and L5-S1 degenerative disc disease.
[2023-07-23] MEDS: Diflucan/Saline 0.2G/100ML PREMIX*** 200 ML IV SCH (13:05)
[2023-07-23] MEDS: solu-MEDROL 125 MG, Sterile H2O 10 ml 2 ML IV SCH (13:09)
[2023-07-23] MEDS: DUONEB 0.5-3 MG/3 ml Neb IH SCH (16:45)
[2023-07-24 05:02] LABS: Hematocrit 28.5 % (35-47); Hemoglobin 8.6 g/dL (12.0-16.0); Mean Cell Volume 79.6 fL (78-100); Mean Corpuscular Hgb Concent. 30.2 g/dL (32-36); Mean Platelet Volume 8.6 fL (7.5-11.0); Platelet Count 451 x10^3/uL (150-450); Red Blood Count 3.58 x10^6/uL (4.1-5.4); Red Cell Distribution Width 18.5 % (11.5-14.0)
[2023-07-24 05:11] LABS: White Blood Count 31.4 x10^3/uL (4.0-10.5)
[2023-07-24 05:18] LABS: ALBUMIN 2.5 g/dL (3.5-5.0); ANION GAP 9.5 MEQ/L (5-15); BILIRUBIN,TOTAL 0.4 mg/dL (0.2-1.3); Calcium 8.4 mg/dL (8.4-10.2); Creatinine 1 0.43 mg/dL (0.52-1.04); EST GLOMERULAR FILTRATION RATE 121.4 ML/MIN
[2023-07-24 05:25] LABS: Potassium 2.9 mmol/L (3.5-5.1)
[2023-07-24] MEDS: Klor Con PO ONE (05:32)
[2023-07-24 06:12] LABS: BAND 5 % (0.0-2.0); Lymphocytes 2 % (24-44); Monocyte 1 % (0.0-12.0); Neutrophils 92 % (36.0-66.0); Total Cells Counted 100
[2023-07-24 06:13] LABS: ANISOCYTOSIS 1+; Poikilocytosis 1+
[2023-07-24 06:14] LABS: Platelet Estimate NORMAL (NORMAL)
[2023-07-24 06:15] LABS: Polychromasia RARE
[2023-07-24] MEDS: POTASSIUM CHLORIDE 20 mEq IN WATER 100ML 100 ML IV SCH (08:20)
[2023-07-24] MEDS: Sodium Chloride 0.9% 1000 ML 1,000 ML IV SCH (09:15)
[2023-07-24 10:12] LABS: Appearance Cloudy (Clear); Bacteria None Seen /HPF (None Seen); Bilirubin Negative (Negative); Blood Negative (Negative); Epithelial Cells Many /HPF (None Seen); Glucose, Urine Negative (Negative); Hyaline Casts NONE SEEN /LPF (0-2); Ketones Trace (Negative); Leukocyte Esterase Negative (Negative); Nitrite Negative (Negative); Ph 5.5 (4.6-8.0); Protein,Urine Dip 30 (Negative); Specific Gravity >=1.030 (1.005-1.030)
[2023-07-24 10:14] LABS: ADD URINE CULTURE? YES (NO); Budding Yeast Rare /HPF (None Seen)
[2023-07-24] MEDS: Diflucan/Saline 0.2G/100ML PREMIX*** 100 ML IV SCH (13:15)
--- NOTE | 2023-07-24 13:49 | PCM.NOTE ---
Date and Time: 07/24/23 1337 Subjective Assessment: 07/21/23 Ms. DOUGLAS is a 47 year old female with a past medical history significant for hypertension, mixed connective tissue disease, and COPD. She presented to the hospital on 07/17 with complaints of increasing weakness, lower abdominal pain, and cough associated with yellow green sputum. She was found to have an elevated WBC count of 25k on admission. She she recently saw her tool specialist (Dr. Sutton) who held her Plaquenil. She has had some low grade temps but no fever/chills. No chest pain but persistent shortness of breath. No nausea or vomiting but significant diarrhea. Initial labs were also notable for a potassium of 2.6 and magnesium of 1.3. She was started on IVFs, received doses of Mg/K and given antibiotics in the ER. CT chest negative for PE, but does show RUL/RLL masses with likely metastatic disease. Reports that she has recently lost 15 lbs in three months and has frequent night sweats. Discussed CT chest finding showing new RUL/RLL masses which are likely malignant. Patient states she was aware of a nodule that has been under surveillance by Dr. Correia her chamber magistrate, but did not know about the other masses. Patient is agreeable to see oncology as OP for evaluation. At this time she does not want any further imaging, she would like to wait to discuss with oncology. She reports smoking up to 2 ppd since teens. She has not smoked now for 3 weeks and no longer wants to. WBC improved today. She is 92%- Room air. She is no longer SOB but has continued weakness. Will have PT work with pt tomorrow to eval for any home needs. She is declining home care and explains her helps her with everything. 07/22/23 Pt resting in bed. Overnight she developed a temp of 99.2, and now on 10Loxymask. Yesterday she was not requiring oxygen. Pulmonology consulted. She has now been here for 5 days. WBC worse 29.6. Antibiotics changed to Zosyn. BC x2 redrawn. HR elevated. Lactic acid WNL, procal 0.168. Repeat CXR shows demonstrates interval developing small bibasilar effusions without focal infiltrate or cardiomegaly. Daily IV lasix added. Dr. Cifuentes and I both discussed again with pt need for further testing and evaluation of lung nodule, she refuses any further testing or scans. She is not willing to have bronch or biopsy if needed. She is not willing to transfer to [facility] as her chamber magistrate Dr. Correia is there. She explained she does not like [place] and will not go there. Discussed risk of refusing further evaluation including need for intubation. She wants to think about this and discuss with . Discussed code status with her and currently she is a full code and wants to remain that way. She is willing to see Dr. Johnson here. She denies CP, Abd pain, N/V/D. 07/23/23 Pt resting in bed. She feels she is breathing better today, however she continues to require 9L oxymask and O2 is 90%. Will start steroids and LABA. She continued to have a fever overnight despite antibiotic change. Repeat blood cultures pending. Sputum culture + yeast, fluconazole IV started. Urine culture from repeat UA yesterday pending. Leukocytosis has not improved much. Pt is agreeable to CT scan of abd. today. Pulmonology consulted yesterday and no further recs provided. Pt is still unwilling to have any invasive procedures. She would like to see CT abd results and go from there. She refuses transfer at this time. She wants to be a DNR and signed paperwork. Case management discussed with pt in options for care. She would like to wait for CT before making decisions. She denies CP, Abd. pain, N/V/D. 07/24/23 Pt resting in chair. Discussed CT abd results, no acute concerning findings. She is on 8L oxymask today. Lungs sounds clear. Again asked if she would like tx to higher level of care for further workup and she declined. She did admit that prior to admission she smoked some marijuana and it did not set well with her and made her chest hurt and something seemed off. She ended up throwing this away. Sputum culture final showed moderate budding yeast. Fluconazole IV started yesterday. Dr. Cifuentes discussed pt case with pt's PCP Dr. Cuellar as pt is asking to d/c home with hospice. Dr. Coronado came in and spoke with pt and she understands everything and continues to want hospice. Case management to set this up, most likely to d/c tomorrow. She denies any further concerns at this time. - Review of Systems Constitutional: Weakness, Weight Loss, No Fever, No Chills Eyes: No Symptoms Ears, Nose, & Throat: No Symptoms Respiratory: Short Of Breath, No Cough Cardiac: No Chest Pain, No Edema, No Syncope Abdominal/Gastrointestinal: No Abdominal Pain, No Nausea, No Vomiting, No Diarrhea Genitourinary Symptoms: No Dysuria Musculoskeletal: No Back Pain, No Neck Pain Skin: No Rash Neurological: No Dizziness, No Focal Weakness, No Sensory Changes Psychological: No Symptoms Endocrine: No Symptoms Hematologic/Lymphatic: No Symptoms Immunological/Allergic: No Symptoms Objective Exam General Appearance: no apparent distress, alert, cachetic, thin Neurologic Exam: alert, oriented x 3, cooperative, normal mood/affect, nml cerebellar function, sensation nml, No motor deficits Skin Exam: warm, dry, other (redding) Eye Exam: PERRL, EOMI, eyes nml inspection Ears, Nose, Throat Exam: normal ENT inspection, pharynx normal, moist mucous membranes Neck Exam: normal inspection, non-tender, supple, full range of motion Respiratory Exam: normal breath sounds, lungs clear, No respiratory distress Cardiovascular Exam: regular rate/rhythm, normal heart sounds Gastrointestinal/Abdomen Exam: soft, No tenderness, No mass Extremity Exam: normal inspection, normal range of motion Back Exam: normal inspection, normal range of motion, No CVA tenderness, No vertebral tenderness Pelvic Exam: deferred Rectal Exam: deferred Objective Data Vital Signs: Vital Signs - 24 hr Temp Pulse Resp BP Pulse Ox 07/24/23 11:00 96.7 F 94 H 22 109/66 94 L 07/24/23 10:50 93 H 16 90 L 07/24/23 07:00 97.5 F 80 18 108/61 96 07/24/23 06:37 82 20 96 07/24/23 03:00 97.8 F 81 22 102/63 96 07/24/23 02:48 73 18 96 07/23/23 23:00 97.1 F 77 22 90/55 97 07/23/23 22:31 74 20 92 L 07/23/23 19:00 97.8 F 95 H 22 96/53 97 07/23/23 18:55 85 18 94 L 07/23/23 15:17 102 H 18 92 L 07/23/23 15:00 98.1 F 99 H 17 105/58 95 Pain Assessment - Last Documented Pain Intensity 4 Pain Scale Used 0-10 Pain Scale Intake and Output: Intake & Output 07/22/23 07/23/23 07/24/23 07/25/23 11:59 11:59 11:59 11:59 Intake Total 1960 1080 1013 Output Total 938 050 6920 600 Balance 1135 580 587 600 Weight 50.3 kg Lab Results: Lab Results-Last 24 Hours 07/20/23 07/24/23 07/24/23 Range/Units 06:50 04:25 04:25 WBC 31.4 H* (4.0-10.5) x10^3/uL RBC 3.58 L (4.1-5.4) x10^6/uL Hgb 8.6 L (12.0-16.0) g/dL Hct 28.5 L (35-47) % MCV 79.6 (78-100) fL MCH 24.0 L (26-32) pg MCHC 30.2 L (32-36) g/dL RDW 18.5 H (11.5-14.0) % Plt Count 451 H (150-450) x10^3/uL MPV 8.6 (7.5-11.0) fL Segmented Neutrophils 92 H (36.0-66.0) % Band Neutrophils 5 H (0.0-2.0) % Lymphocytes (Manual) 2 L (24-44) % Monocytes (Manual) 1 (0.0-12.0) % Platelet Estimate NORMAL (NORMAL) RBC Morphology ABNORMAL Polychromasia RARE Poikilocytosis 1+ Anisocytosis 1+ Smear Path Review Sodium 135 (135-145) mmol/L Potassium 2.9 L* D (3.5-5.1) mmol/L Chloride 98 (98-107) mmol/L Carbon Dioxide 30 (22-30) mmol/L Anion Gap 9.5 (5-15) MEQ/L BUN 9 (7-17) mg/dL Creatinine 0.43 L (0.52-1.04) mg/dL Estimated GFR 121.4 ML/MIN Glucose 178 H (74-106) mg/dL Calcium 8.4 (8.4-10.2) mg/dL Magnesium (1.6-2.3) mg/dL Total Bilirubin 0.40 (0.2-1.3) mg/dL AST 24 (14-36) U/L ALT 21 (0-35) U/L Alkaline Phosphatase 115 (38-126) U/L Serum Total Protein 6.0 L (6.3-8.2) g/dL Albumin 2.5 L (3.5-5.0) g/dL Urine Color (Yellow) Urine Appearance (Clear) Urine pH (4.6-8.0) Ur Specific [place] (1.005-1.030) Urine Protein (Negative) Urine Glucose (UA) (Negative) mg/dL Urine Ketones (Negative) Urine Blood (Negative) Urine Nitrite (Negative) Urine Bilirubin (Negative) Urine Urobilinogen (0.2) mg/dL Ur Leukocyte Esterase (Negative) U Hyaline Cast (Auto) (0-2) /LPF Urine Microscopic RBC (0-5) /HPF Urine Microscopic WBC (0-5) /HPF Ur Epithelial Cells (None Seen) /HPF Urine Bacteria (None Seen) /HPF Urine Yeast (Budding) (None Seen) /HPF Urine Culture Reflexed (NO) 07/24/23 07/24/23 Range/Units 04:25 09:42 WBC (4.0-10.5) x10^3/uL RBC (4.1-5.4) x10^6/uL Hgb (12.0-16.0) g/dL Hct (35-47) % MCV (78-100) fL MCH (26-32) pg MCHC (32-36) g/dL RDW (11.5-14.0) % Plt Count (150-450) x10^3/uL MPV (7.5-11.0) fL Segmented Neutrophils (36.0-66.0) % Band Neutrophils (0.0-2.0) % Lymphocytes (Manual) (24-44) % Monocytes (Manual) (0.0-12.0) % Platelet Estimate (NORMAL) RBC Morphology Polychromasia Poikilocytosis Anisocytosis Smear Path Review Sodium (135-145) mmol/L Potassium (3.5-5.1) mmol/L Chloride (98-107) mmol/L Carbon Dioxide (22-30) mmol/L Anion Gap (5-15) MEQ/L BUN (7-17) mg/dL Creatinine (0.52-1.04) mg/dL Estimated GFR ML/MIN Glucose (74-106) mg/dL Calcium (8.4-10.2) mg/dL Magnesium 1.8 (1.6-2.3) mg/dL Total Bilirubin (0.2-1.3) mg/dL AST (14-36) U/L ALT (0-35) U/L Alkaline Phosphatase (38-126) U/L Serum Total Protein (6.3-8.2) g/dL Albumin (3.5-5.0) g/dL Urine Color Dark Yellow A (Yellow) Urine Appearance Cloudy A (Clear) Urine pH 5.5 (4.6-8.0) Ur Specific [place] >=1.030 A (1.005-1.030) Urine Protein 30 (Negative) Urine Glucose (UA) Negative (Negative) mg/dL Urine Ketones Trace A (Negative) Urine Blood Negative (Negative) Urine Nitrite Negative (Negative) Urine Bilirubin Negative (Negative) Urine Urobilinogen 1.0 A (0.2) mg/dL Ur Leukocyte Esterase Negative (Negative) U Hyaline Cast (Auto) NONE SEEN (0-2) /LPF Urine Microscopic RBC 11-20 A (0-5) /HPF Urine Microscopic WBC 3-5 (0-5) /HPF Ur Epithelial Cells Many A (None Seen) /HPF Urine Bacteria None Seen (None Seen) /HPF Urine Yeast (Budding) Rare A (None Seen) /HPF Urine Culture Reflexed YES (NO) Radiology Exams: Radiology Procedures Category Date Time Status ABDOMEN AND PELVIS W CONTRAST [CT] Urgent Exams 07/23/23 10:47 Completed Multi-Disciplinary Progress Notes: Multi-Disciplinary Progress Notes 07/24/23 12:48 Case Management Note by Elham La DR. HAD DISCUSSED PATIENT'S CASE WITH HER PCP- DR. ZULETA. HE CAME IN AND REVIEWED CHART AND S/W PATIENT. PATIENT ADAMANT SHE WOULD LIKE TO GO HOME WITH HOSPICE BECAUSE SHE DOES NOT WANT ANY INVASIVE PROCEDURES OR TREATMENT. SHE REPORTS HER IS SUPPORTIVE OF THIS DECISION. PATIENT GIVEN LIST OF HOSPICE PROVIDERS- SHE WOULD LIKE TO USE [facility]. CALLED REFERRAL INTO [facility] AND SENT REFERRAL VIA FAX. PATIENT WOULD LIKE TO PLAN ON DCING HOME TOMORROW. BELLA WILL BE IN TO SEE PATIENT AND START MAKING ARRANGEMENTS THIS AFTERNOON. Initialized on 07/24/23 12:48 - END OF NOTE 07/23/23 14:33 Physical Therapy Note by Lelia(L#[id number])Blessing P.T. ORDER WILL BE CANCELLED AT THIS TIME D/T PT'S HIGH O2 DEMAND EVEN AT REST THIS TIME. PT. IS CONTEMPLATING HOSPICE CARE SO REHAB NOT WARRANTED IF MOVING TO PALLIATIVE COURSE. Initialized on 07/23/23 14:33 - END OF NOTE Assessment/Plan (1) Pneumonia Current Visit: Yes Status: Acute Qualifiers: Laterality: right Code(s): J18.9 - PNEUMONIA, UNSPECIFIED ORGANISM (2) Lung mass Current Visit: Yes Status: Acute Code(s): R91.8 - OTHER NONSPECIFIC ABNORMAL FINDING OF LUNG FIELD (3) Patient underweight Current Visit: Yes Status: Acute Code(s): R63.6 - UNDERWEIGHT (4) Weakness Current Visit: Yes Status: Acute Code(s): R53.1 - WEAKNESS (5) Hypokalemia Current Visit: Yes Status: Resolved Code(s): E87.6 - HYPOKALEMIA (6) Hypomagnesemia Current Visit: Yes Status: Acute Code(s): E83.42 - HYPOMAGNESEMIA (7) Mixed connective tissue disease Current Visit: Yes Status: Chronic Code(s): M35.1 - OTHER OVERLAP SYNDROMES (8) UTI (urinary tract infection) Current Visit: Yes Status: Resolved Code(s): N39.0 - URINARY TRACT INFECTION, SITE NOT SPECIFIED (9) Hypertension Current Visit: No Status: Chronic Code(s): I10 - ESSENTIAL (PRIMARY) HYPERTENSION (10) Iron (Fe) deficiency anemia Current Visit: Yes Status: Chronic Code(s): D50.9 - IRON DEFICIENCY ANEMIA, UNSPECIFIED (11) Hyponatremia Current Visit: Yes Status: Acute Code(s): E87.1 - HYPO-OSMOLALITY AND HYPONATREMIA (12) Folate deficiency Current Visit: Yes Status: Acute Assessment & Plan: (1) Pneumonia Current Visit: Yes Status: Acute Qualifiers: Laterality: right Assessment & Plan: -Supplemental oxygen with spo2 goal >92%/DuoNebs- currenlty RA 92% -WBC improved 20.4 - Afebrile - Continue levaquin - Baseline oxygen is 3L at night - Sputum culture pending - BC x2 negative - Pro darian 07/17- 0.145 07/21 - Temp of 99.2 overnight - Now on 10L oxymask - + tachycardia - repeat BC x2 - change antibiotics to Zosyn - PRN benadryl for hives if needed - Lactic acid 0.8 - Procal increased 0.168 - Pulmonology consult - CXR PA/lateral chest demonstrates interval developing small bibasilar effusions without focal infiltrate or cardiomegaly. Remaining chest unchanged again with COPD and CT proven right lung masses. - IV lasix daily started - refuses any further imaging or testing except labs 07/22 - Sputum culture + yeast- Fluconazole IV started - WBC 28.9 - 9L oxymask 90% - steroids and LABA started 07/23 - 8 L oxymask 94% - WBC 31.4- increased with initiation of steroids Code(s): J18.9 - PNEUMONIA, UNSPECIFIED ORGANISM (2) Lung mass Current Visit: Yes Status: Acute Assessment & Plan: -CT scan reviewed showing New large right upper and right lower lobe noncalcified lung masses as detailed worrisome for malignancy. 3. New right hilar prominent lymph node probably metastatic. 4. New right upper lobe interstitial alveolar opacities with tiny effusion probably pneumonia. -Long discussion had with patient regarding results. -will refer to oncology on discharge for evaluation, patient would like to discuss with oncology before any further testing including scans are performed - pulmonology consulted- no recs 07/22 - Pt willing to have CT abd for further eval - signed DNR and considering hospice 07/23 - Hospice being set up by case management Code(s): R91.8 - OTHER NONSPECIFIC ABNORMAL FINDING OF LUNG FIELD (3) Patient underweight Current Visit: Yes Status: Acute Assessment & Plan: - BMI 17.9 - nutrition consult - recent 15 lb weight loss - possible lung malignancy per CT results Code(s): R63.6 - UNDERWEIGHT (4) Weakness Current Visit: Yes Status: Acute Assessment & Plan: - PT eval for home needs - 2:2 Pneumonia/ ? malignancy as seen on CT chest Code(s): R53.1 - WEAKNESS (5) Hypokalemia Current Visit: Yes Status: Resolved Assessment & Plan: 07/23 - K+2.9- replaced Code(s): E87.6 - HYPOKALEMIA (6) Hypomagnesemia Current Visit: Yes Status: Acute Assessment & Plan: - Mg+ 1.4 replaced- trend 07/21 - Mg+ 1.2- replaced 07/22 - Mg+ 1.5- replaced- trend 07/23 - resolved Code(s): E83.42 - HYPOMAGNESEMIA (7) Mixed connective tissue disease Current Visit: Yes Status: Chronic Assessment & Plan: -Follow OP with rheumatology, was on plaquenil which is being held for now due to adverse reaction per pt. Code(s): M35.1 - OTHER OVERLAP SYNDROMES (8) UTI (urinary tract infection) Current Visit: Yes Status: Resolved Assessment & Plan: - UC negative 07/21 - Repeat UA with C&S- 07/23 - called lab today and no culture was done with previous urine as ordered so UA with C&S repeated today Code(s): N39.0 - URINARY TRACT INFECTION, SITE NOT SPECIFIED (9) Hypertension Current Visit: No Status: Chronic Assessment & Plan: - Continue Coreg - Hold losartan Code(s): I10 - ESSENTIAL (PRIMARY) HYPERTENSION (10) Iron (Fe) deficiency anemia Current Visit: Yes Status: Chronic Assessment & Plan: - iron panel reviewed - Ferrous sulfate daily started 07/22 - hgb 7.4 - trend 07/23 - Hgb 8.6 Code(s): D50.9 - IRON DEFICIENCY ANEMIA, UNSPECIFIED (11) Hyponatremia Current Visit: Yes Status: Acute Assessment & Plan: - Na+ 130- mild- trend 07/23 - Na+135 Code(s): E87.1 - HYPO-OSMOLALITY AND HYPONATREMIA (12) Folate deficiency Current Visit: Yes Status: Acute Assessment & Plan: - B12 normal - daily folic acid VTE: Lovenox Next of Kin: Dorene Renae [phone] D/C plan: tomorrow Code status: DNR/SCO Code(s): E53.8 - DEFICIENCY OF OTHER SPECIFIED B GROUP VITAMINS
[2023-07-25 04:51] LABS: Hematocrit 26.6 % (35-47); Hemoglobin 8.1 g/dL (12.0-16.0); Mean Cell Volume 79.6 fL (78-100); Mean Corpuscular Hemoglobin 24.3 pg (26-32); Mean Corpuscular Hgb Concent. 30.5 g/dL (32-36); Mean Platelet Volume 9.2 fL (7.5-11.0); Platelet Count 447 x10^3/uL (150-450); Red Blood Count 3.34 x10^6/uL (4.1-5.4); Red Cell Distribution Width 18.6 % (11.5-14.0)
[2023-07-25 05:01] LABS: White Blood Count 36.2 x10^3/uL (4.0-10.5)
[2023-07-25 05:15] LABS: ALBUMIN 2.2 g/dL (3.5-5.0); ANION GAP 8.9 MEQ/L (5-15); BILIRUBIN,TOTAL 0.3 mg/dL (0.2-1.3); Calcium 8.8 mg/dL (8.4-10.2); Creatinine 1 0.39 mg/dL (0.52-1.04); EST GLOMERULAR FILTRATION RATE 124.3 ML/MIN; Potassium 3.9 mmol/L (3.5-5.1); Total Protein 5.2 g/dL (6.3-8.2)
--- NOTE | 2023-07-25 09:52 | PCM.DS ---
Discharge Summary Date of Admission: 07/18/23 20:22 Date of Discharge: 07/25/23 Admitting Physician: JAMES AL MD Consults: Consults on Case 07/21/23 11:53 Nutritional Consult ROUTINE 07/22/23 10:51 Consult Pulmonology ROUTINE Primary Care Provider: BIB ZULETAYESH Allergies Allergies penicillin G Allergy (Intermediate, Verified 07/18/23 15:47) [facility] Summary - Hospital Course Hospital Course: 07/21/23 Ms. DOUGLAS is a 47 year old female with a past medical history significant for hypertension, mixed connective tissue disease, and COPD. She presented to the hospital on 07/17 with complaints of increasing weakness, lower abdominal pain, and cough associated with yellow green sputum. She was found to have an elevated WBC count of 25k on admission. She she recently saw her used car sales supervisor (Dr. Sutton) who held her Plaquenil. She has had some low grade temps but no fever/ch ills. No chest pain but persistent shortness of breath. No nausea or vomiting but significant diarrhea. Initial labs were also notable for a potassium of 2.6 and magnesium of 1.3. She was started on IVFs, received doses of Mg/K and given antibiotics in the ER. CT chest negative for PE, but does show RUL/RLL masses with likely metastatic disease. Reports that she has recently lost 15 lbs in three months and has frequent night sweats. Discussed CT chest finding showing new RUL/RLL masses which are likely malignant. Patient states she was aware of a nodule that has been under surveillance by Dr. Correia her bag presser, but did not know about the other masses. Patient is agreeable to see oncology as OP for evaluation. At this time she does not want any further imaging, she would like to wait to discuss with oncology. She reports smoking up to 2 ppd since teens. She has not smoked now for 3 weeks and no longer wants to. WBC improved today. She is 92%- Room air. She is no longer SOB but has continued weakness. Will have PT work with pt tomorrow to eval for any home needs. She is declining home care and explains her helps her with everything. 07/22/23 Pt resting in bed. Overnight she developed a temp of 99.2, and now on 10Loxymask. Yesterday she was not requiring oxygen. Pulmonology consulted. She has now been here for 5 days. WBC worse 29.6. Antibiotics changed to Zosyn. BC x2 redrawn. HR elevated. Lactic acid WNL, procal 0.168. Repeat CXR shows demonstrates interval developing small bibasilar effusions without focal infiltrate or cardiomegaly. Daily IV lasix added. Dr. Cifuentes and I both discussed again with pt need for further testing and evaluation of lung nodule, she refuses any further testing or scans. She is not willing to have bronch or biopsy if needed. She is not willing to transfer to [facility] as her bag presser Dr. Correia is there. She explained she does not like [place] and will not go there. Discussed risk of refusing further evaluation including need for intubation. She wants to think about this and discuss with . Discussed code status with her and currently she is a full code and wants to remain that way. She is willing to see Dr. Johnson here. She denies CP, Abd pain, N/V/D. 07/23/23 Pt resting in bed. She feels she is breathing better today, however she continues to require 9L oxymask and O2 is 90%. Will start steroids and LABA. She continued to have a fever overnight despite antibiotic change. Repeat blood cultures pending. Sputum culture + yeast, fluconazole IV started. Urine culture from repeat UA yesterday pending. Leukocytosis has not improved much. Pt is agreeable to CT scan of abd. today. Pulmonology consulted yesterday and no further recs provided. Pt is still unwilling to have any invasive procedures. She would like to see CT abd results and go from there. She refuses transfer at this time. She wants to be a DNR and signed paperwork. Case management discussed with pt in options for care. She would like to wait for CT before making decisions. She denies CP, Abd. pain, N/V/D. 07/24/23 Pt resting in chair. Discussed CT abd results, no acute concerning findings. She is on 8L oxymask today. Lungs sounds clear. Again asked if she would like tx to higher level of care for further workup and she declined. She did admit that prior to admission she smoked some marijuana and it did not set well with her and made her chest hurt and something seemed off. She ended up throwing this aw ay. Sputum culture final showed moderate budding yeast. Fluconazole IV started yesterday. Dr. Cifuentes discussed pt case with pt's PCP Dr. Cuellar as pt is asking to d/c home with hospice. Dr. Coronado came in and spoke with pt and she understands everything and continues to want hospice. Case management to set this up, most likely to d/c tomorrow. She denies any further concerns at this time. 07/25/23 Pt sitting up in bed. She is all ready to leave today with hospice. Explained to her she is always able to change her mind about everything. She explained she understands. Will make f/up appointment with Dr. Membreno. Hospice in room speaking with pt at this time. She is awaiting equipment to be delivered. She continues to be on 8L oxymask. Lung sounds are clear. She denies CP, Abd. pain, N/V/D. - Vitals & Intake/Output Vital Signs: Vital Signs Temperature 96.6 F 07/25/23 07:37 Pulse Rate 101 H 07/25/23 07:37 Respiratory Rate 20 07/25/23 07:37 Blood Pressure 116/76 07/25/23 07:37 O2 Sat by Pulse Oximetry 99 07/25/23 07:37 Intake & Output: Intake & Output 07/22/23 07/23/23 07/24/23 07/25/23 11:59 11:59 11:59 11:59 Intake Total 1960 1080 1013 760 Output Total 228 160 6606 900 Balance 1135 580 -587 -140 Weight 50.3 kg - Lab Result Diagrams: 07/25/23 04:37 07/25/23 04:37 Lab Results-Last 24 Hrs: Lab Results-Last 24 Hours 07/24/23 07/24/23 07/25/23 Range/Units 09:42 15:40 04:37 WBC (4.0-10.5) x10^3/uL RBC (4.1-5.4) x10^6/uL Hgb (12.0-16.0) g/dL Hct (35-47) % MCV (78-100) fL MCH (26-32) pg MCHC (32-36) g/dL RDW (11.5-14.0) % Plt Count (150-450) x10^3/uL MPV (7.5-11.0) fL Sodium (135-145) mmol/L Potassium 3.6 D (3.5-5.1) mmol/L Chloride (98-107) mmol/L Carbon Dioxide (22-30) mmol/L Anion Gap (5-15) MEQ/L BUN (7-17) mg/dL Creatinine (0.52-1.04) mg/dL Estimated GFR ML/MIN Glucose (74-106) mg/dL Calcium (8.4-10.2) mg/dL Magnesium 1.8 (1.6-2.3) mg/dL Total Bilirubin (0.2-1.3) mg/dL AST (14-36) U/L ALT (0-35) U/L Alkaline Phosphatase (38-126) U/L Serum Total Protein (6.3-8.2) g/dL Albumin (3.5-5.0) g/dL Urine Color Dark Yellow A (Yellow) Urine Appearance Cloudy A (Clear) Urine pH 5.5 (4.6-8.0) Ur Specific [place] >=1.030 A (1.005-1.030) Urine Protein 30 (Negative) Urine Glucose (UA) Negative (Negative) mg/dL Urine Ketones Trace A (Negative) Urine Blood Negative (Negative) Urine Nitrite Negative (Negative) Urine Bilirubin Negative (Negative) Urine Urobilinogen 1.0 A (0.2) mg/dL Ur Leukocyte Esterase Negative (Negative) U Hyaline Cast (Auto) NONE SEEN (0-2) /LPF Urine Microscopic RBC 11-20 A (0-5) /HPF Urine Microscopic WBC 3-5 (0-5) /HPF Ur Epithelial Cells Many A (None Seen) /HPF Urine Bacteria None Seen (None Seen) /HPF Urine Yeast (Budding) Rare A (None Seen) /HPF Urine Culture Reflexed YES (NO) 07/25/23 07/25/23 Range/Units 04:37 04:37 WBC 36.2 H* (4.0-10.5) x10^3/uL RBC 3.34 L (4.1-5.4) x10^6/uL Hgb 8.1 L (12.0-16.0) g/dL Hct 26.6 L (35-47) % MCV 79.6 (78-100) fL MCH 24.3 L (26-32) pg MCHC 30.5 L (32-36) g/dL RDW 18.6 H (11.5-14.0) % Plt Count 447 (150-450) x10^3/uL MPV 9.2 (7.5-11.0) fL Sodium 136 (135-145) mmol/L Potassium 3.9 (3.5-5.1) mmol/L Chloride 102 (98-107) mmol/L Carbon Dioxide 28 (22-30) mmol/L Anion Gap 8.9 (5-15) MEQ/L BUN 13 (7-17) mg/dL Creatinine 0.39 L (0.52-1.04) mg/dL Estimated GFR 124.3 ML/MIN Glucose 123 H (74-106) mg/dL Calcium 8.8 (8.4-10.2) mg/dL Magnesium (1.6-2.3) mg/dL Total Bilirubin 0.30 (0.2-1.3) mg/dL AST 44 H (14-36) U/L ALT 26 (0-35) U/L Alkaline Phosphatase 101 (38-126) U/L Serum Total Protein 5.2 L (6.3-8.2) g/dL Albumin 2.2 L (3.5-5.0) g/dL Urine Color (Yellow) Urine Appearance (Clear) Urine pH (4.6-8.0) Ur Specific [place] (1.005-1.030) Urine Protein (Negative) Urine Glucose (UA) (Negative) mg/dL Urine Ketones (Negative) Urine Blood (Negative) Urine Nitrite (Negative) Urine Bilirubin (Negative) Urine Urobilinogen (0.2) mg/dL Ur Leukocyte Esterase (Negative) U Hyaline Cast (Auto) (0-2) /LPF Urine Microscopic RBC (0-5) /HPF Urine Microscopic WBC (0-5) /HPF Ur Epithelial Cells (None Seen) /HPF Urine Bacteria (None Seen) /HPF Urine Yeast (Budding) (None Seen) /HPF Urine Culture Reflexed (NO) Micro Results-Entire Visit: Microbiology 07/24/23 09:42 Urine Culture - Preliminary Urine, Void NO GROWTH TO DATE 07/20/23 10:15 Gram Stain - Final Sputum - Expectorant Sputum Culture - Final 07/22/23 10:32 Blood Culture - Preliminary Blood 07/22/23 10:24 Blood Culture - Preliminary Blood 07/18/23 16:23 Blood Culture - Final Blood 07/18/23 16:18 Blood Culture - Final Blood 07/18/23 16:19 Urine Culture - Final Clean Catch Midstream MIXED MELA; 3 OR MORE TYPES. NO PREDOMINANT ORGANISM. NO FURTHER WORKUP. PLEASE RESUBMIT IF CLINICALLY INDICATED. - Radiology Exams Ordered Rad Exams-Entire Visit: Radiology Procedures Category Date Time Status ABDOMEN AND PELVIS W CONTRAST [CT] Urgent Exams 07/23/23 10:47 Completed - Procedures and Test Procedures and Tests throughout Hospitalization: Therapy Orders & Screens 07/18/23 16:14 Respiratory Therapy Assessment DAILY Comment: 07/18/23 20:36 Oxygen Nasal Cannula 2 lpm Comment: Respiratory Therapy Consult ONCE Comment: Reason For Exam: 07/18/23 21:36 RT Screen per Nursing Assess ONCE Comment: Protocol Order Physician Instructions: Greater than 3 points order RT Admission Screen Reason For Exam: Triggered on Admission Diagnosis: Pmuemonia/UTI Diagnosis: Pmuemonia/UTI Pneumonia: Yes Home O2: Yes: 3L HS Asthma: No CHF: No Home CPAP/BIPAP: No Home Nebs/MDI: Yes Total Points: 13 Smoking Cessation Education ONCE Comment: Diagnosis: Pmuemonia/UTI Smoking Status: Current every day smoker How long have you smoked: YRS Have you smoked in the past 12 months: Yes Approximately how many cigarettes per day: 1-1 1/2 pk day Do you dip or chew tobacco: No If,Former Smoker,when did you quit: [address] Screen per Nursing Assess ONCE Comment: Protocol Order Physician Instructions: Greater than [address] Admission Screening Reason For Exam: Triggered on Admission Diagnosis: Pmuemonia/UTI CVA/Dyshpagia/Aphasia: No Cognitive Deficits: No Dehydration/Nutrition Deficit: No Reflux: No Oral-Motor Difficulties: No Pneumonia: Yes Penitentiary Resident: No Total Points: 5 07/21/23 07:28 Respiratory Therapy Assessment DAILY Comment: eval for home O2 Diagnosis: Pnuemonia/UTI 07/23/23 11:19 Respiratory MDI BID Comment: Diagnosis: Pnuemonia/UTI Discharge Exam General Appearance: alert, cachetic, thin Neurologic Exam: alert, oriented x 3, cooperative, normal mood/affect, nml cerebellar function, sensation nml, No motor deficits Eye Exam: PERRL, EOMI, eyes nml inspection Ears, Nose, Throat Exam: normal ENT inspection, pharynx normal, moist mucous membranes Neck Exam: normal inspection, non-tender, supple, full range of motion Respiratory Exam: normal breath sounds, lungs clear, No respiratory distress Cardiovascular Exam: regular rate/rhythm, normal heart sounds Gastrointestinal/Abdomen Exam: soft, No tenderness, No mass Pelvic Exam: deferred Rectal Exam: deferred Back Exam: normal inspection, normal range of motion, No CVA tenderness, No vertebral tenderness Extremity Exam: normal inspection, normal range of motion Skin Exam: warm, dry, other (redding) Final Diagnosis/Problem List - Final Discharge Diagnosis/Problem (1) Pneumonia Current Visit: Yes Status: Acute Code(s): J18.9 - PNEUMONIA, UNSPECIFIED ORGANISM (2) Lung mass Current Visit: Yes Status: Acute Code(s): R91.8 - OTHER NONSPECIFIC ABNORMAL FINDING OF LUNG FIELD (3) Patient underweight Current Visit: Yes Status: Acute Code(s): R63.6 - UNDERWEIGHT (4) Weakness Current Visit: Yes Status: Acute Code(s): R53.1 - WEAKNESS (5) Hypokalemia Current Visit: Yes Status: Resolved Code(s): E87.6 - HYPOKALEMIA (6) Hypomagnesemia Current Visit: Yes Status: Acute Code(s): E83.42 - HYPOMAGNESEMIA (7) Mixed connective tissue disease Current Visit: Yes Status: Chronic Code(s): M35.1 - OTHER OVERLAP SYNDROMES (8) UTI (urinary tract infection) Current Visit: Yes Status: Resolved Code(s): N39.0 - URINARY TRACT INFECTI ON, SITE NOT SPECIFIED (9) Hypertension Current Visit: No Status: Chronic Code(s): I10 - ESSENTIAL (PRIMARY) HYPERTENSION (10) Iron (Fe) deficiency anemia Current Visit: Yes Status: Chronic Code(s): D50.9 - IRON DEFICIENCY ANEMIA, UNSPECIFIED (11) Hyponatremia Current Visit: Yes Status: Acute Code(s): E87.1 - HYPO-OSMOLALITY AND HYPONATREMIA (12) Folate deficiency Current Visit: Yes Status: Acute Assessment & Plan: (1) Pneumonia Current Visit: Yes Status: Acute Qualifiers: Laterality: right Assessment & Plan: -Supplemental oxygen with spo2 goal >92%/DuoNebs- currenlty RA 92% -WBC improved 20.4 - Afebrile - Continue levaquin - Baseline oxygen is 3L at night - Sputum culture pending - BC x2 negative - Pro darian 07/17- 0.145 07/21 - Temp of 99.2 overnight - Now on 10L oxymask - + tachycardia - repeat BC x2 - change antibiotics to Zosyn - PRN benadryl for hives if needed - Lactic acid 0.8 - Procal increased 0.168 - Pulmonology consult - CXR PA/lateral chest demonstrates interval developing small bibasilar effusions without focal infiltrate or cardiomegaly. Remaining chest unchanged again with COPD and CT proven right lung masses. - IV lasix daily started - refuses any further imaging or testing except labs 07/22 - Sputum culture + yeast- Fluconazole IV started - WBC 28.9 - 9L oxymask 90% - steroids and LABA started 07/23 - 8 L oxymask 94% - WBC 31.4- increased with initiation of steroids Code(s): J18.9 - PNEUMONIA, UNSPECIFIED ORGANISM (2) Lung mass Current Visit: Yes Status: Acute Assessment & Plan: -CT scan reviewed showing New large right upper and right lower lobe noncalcified lung masses as detailed worrisome for malignancy. 3. New right hilar prominent lymph node probably metastatic. 4. New right upper lobe interstitial alveolar opacities with tiny effusion probably pneumonia. -Long discussion had with patient regarding results. -will refer to oncology on discharge for evaluation, patient would like to discuss with oncology before any further testing including scans are performed - pulmonology consulted- no recs 07/22 - Pt willing to have CT abd for further eval - signed DNR and considering hospice 07/23 - Hospice being set up by case management 07/24 - home with hospice Code(s): R91.8 - OTHER NONSPECIFIC ABNORMAL FINDING OF LUNG FIELD (3) Patient underweight Current Visit: Yes Status: Acute Assessment & Plan: - BMI 17.9 - nutrition consult - recent 15 lb weight loss - possible lung malignancy per CT results Code(s): R63.6 - UNDERWEIGHT (4) Weakness Current Visit: Yes Status: Acute Assessment & Plan: - PT eval for home needs - 2:2 Pneumonia/ ? malignancy as seen on CT chest Code(s): R53.1 - WEAKNESS (5) Hypokalemia Current Visit: Yes Status: Resolved Assessment & Plan: 07/23 - K+2.9- replaced- repeat 3.6 07/24 - resolved Code(s): E87.6 - HYPOKALEMIA (6) Hypomagnesemia Current Visit: Yes Status: Acute Assessment & Plan: - Mg+ 1.4 replaced- trend 07/21 - Mg+ 1.2- replaced 07/22 - Mg+ 1.5- replaced- trend 07/23 - resolved Code(s): E83.42 - HYPOMAGNESEMIA (7) Mixed connective tissue disease Current Visit: Yes Status: Chronic Assessment & Plan: -Follow OP with rheumatology, was on plaquenil which is being held for now due to adverse reaction per pt. Code(s): M35.1 - OTHER OVERLAP SYNDROMES (8) UTI (urinary tract infection) Current Visit: Yes Status: Resolved Assessment & Plan: - UC negative 07/21 - Repeat UA with C&S- 07/23 - called lab today and no culture was done with previous urine as ordered so UA with C&S repeated today 07/24 - UC negative Code(s): N39.0 - URINARY TRACT INFECTION, SITE NOT SPECIFIED (9) Hypertension Current Visit: No Status: Chronic Assessment & Plan: - Continue Coreg - Hold losartan Code(s): I10 - ESSENTIAL (PRIMARY) HYPERTENSION (10) Iron (Fe) deficiency anemia Current Visit: Yes Status: Chronic Assessment & Plan: - iron panel reviewed - Ferrous sulfate daily started 07/22 - hgb 7.4 - trend 07/23 - Hgb 8.6 Code(s): D50.9 - IRON DEFICIENCY ANEMIA, UNSPECIFIED (11) Hyponatremia Current Visit: Yes Status: Acute Assessment & Plan: - Na+ 130- mild- trend 07/23 - Na+135 07/24 - resolved Code(s): E87.1 - HYPO-OSMOLALITY AND HYPONATREMIA (12) Folate deficiency Current Visit: Yes Status: Acute Assessment & Plan: - B12 normal - daily folic acid Code(s): E53.8 - DEFICIENCY OF OTHER SPECIFIED B GROUP VITAMINS - Discharge Discharge Date: 07/25/23 ([facility]) Disposition: Home, Self-Care Condition: Fair Prescriptions: New Ferrous Sulfate 325 mg [Feosol 325 mg] 325 mg PO DAILY 30 Days #30 ta blet Folic Acid 1 mg [Folate 1 mg] 1 mg PO DAILY 14 Days #14 tablet Fluconazole 100 mg [Diflucan 100 MG] 200 mg PO DAILY 14 Days #14 tablet Continue Gabapentin 300 mg PO HS Fluticasone/Umeclidin/Vilanter [Trelegy Ellipta 200-62.5-25] 1 puff IH DAILY Carvedilol 12.5 mg [Coreg 12.5 mg] 12.5 mg PO BID Albuterol Sulfate [Albuterol Sulfate Hfa] 2 puff IH Q6HPRN PRN PRN Reason: Shortness Of Breath Discontinued Losartan Potassium 25 mg PO DAILY Additional Instructions: [facility] Follow up with: VICTORINO MEMBRENO MD [NON-STAFF PHY W/O PRIVILEGES] - 07/25/23 11:00 am ADRIANO ZULETA MD [Primary Care Provider] - 07/30/23 11:15 am ([place])
[2023-07-25 12:07] VITALS: BP 105/57; PULSE 89; RESP 17; TEMP 97.3; O2SAT 97
== END 2023-07-25 14:11 | disposition hospice, home (50) | DRG 194 ==
LOC: ED 15:32 → OBSVTOIN 20:22 → MED SURG 20:22
PROVIDERS: ADMIT Internal Medicine; ATTEND Internal Medicine
DX: J18.9 Pneumonia, unspecified organism (principal); E87.1 Hypo-osmolality and hyponatremia; M35.1 Other overlap syndromes; N39.0 Urinary tract infection, site not specified; R91.8 Other nonspecific abnormal finding of lung field; R63.6 Underweight; R53.1 Weakness; E87.6 Hypokalemia; E83.42 Hypomagnesemia; I10 Essential (primary) hypertension; D50.9 Iron deficiency anemia, unspecified; J44.9 Chronic obstructive pulmonary disease, unspecified; E53.8 Deficiency of other specified B group vitamins; F17.200 Nicotine dependence, unspecified, uncomplicated; R50.9 Fever, unspecified; Z79.899 Other long term (current) drug therapy
CPT/HCPCS: 0241U; 36000; 36415; 71046; 71260; 74177; 80053; 81001; 82330; 82607; 82728; 82746; 83036; 83540; 83550; 83605; 83735; 83880; 84132; 84145; 84484; 85025; 85027; 87040; 87070; 87086; 87641; 93005; 93041; 93970; 94640; 94760; 94762; 96360; 96361; 96365; 96366; 96367; 96374; 96375; 99285; 99291; Q3014; J0456; J1450; J1650; J1940; J1956; J2543; J2919; J3475; J3480; A9270-GY; J3370